=== PATIENT | female | born 1925 | race Caucasian/White ===

== ENCOUNTER 2017-02-16 23:01 | Inpatient (IN) | payer MEDICARE ==
[~2017-02-16] VITALS: Ht 162.6 cm; Wt 72.5 kg
[2017-02-16 23:23] VITALS: BP 183/75; RESP 16; O2SAT 89
--- NOTE | 2017-02-16 23:33 | ED.REPORT ---
HPI-Hip/Pelvis Prob/Inj Date of Service Feb 16, 2017 ED Provider: Darrell Ford MD Patient is an 89 y/o female who is brought to the ED via EMS due to a ground level fall. She complains of left leg pain. Patient denies dysuria, fever, cough , shortness of breath or hitting her head. Per the patient's daughter, the patient had a mechanical fall off of the porch. Patient does not recall falling. The patient's daughter reports that the patient normally has a drink or two at night. En route to the ED, patient received Fentanyl by Medics. Patient is not currently on anticoagulants. Nursing Notes Stated Complaint: GLF Chief Complaint: Extremity Trauma Nursing Notes Reviewed: Yes Allergies: Coded Allergies: No Known Allergies (Unverified , 02/16/17) General Time Seen by Provider: 23:36 Chief Complaint Hip injury left Hx Obtained From: Patient, Daughter Arrived By: Ambulance Onset Occurred: Just prior to arrival Symptom Duration: Since onset Caused by: Accidental, Fall on ground Quality: Painful Severity: Current: Severe Severity: Maximum: Severe Recent Healthcare: No recent doctor visit, No recent hospitalization Similar Sx Previous: No Past Medical History Past Medical History None reported Past Surgical History none recorded Smoking History Unknown if Ever Smoker Social History Alcohol Use: 1-3 per week Other Social History: Good social support Ambulatory Status Independent Review of Systems Constitutional: Denies: Fever Musculoskeletal: Reports: Extremity pain (left leg) Complete sys rev & neg: except as marked. Respiratory: Denies: Non-productive cough, Shortness of breath Female: Denies: Dysuria Physical Exam Initial Vital Signs Vital Signs (First) Date Time Temp Pulse Resp B/P Pulse Ox O2 Delivery O2 Flow Rate FiO2 02/16/17 23:23 36.4 16 183/75 89 Room Air Initial VS: Reviewed, Vital signs abnormal General/Constitutional: Well-developed, Well-nourished Head / Eyes: Atraumatic, Normocephalic Abdomen / GI: Soft, Non-tender Skin: Warm, Dry Psychiatric: Mood/affect normal, Behavior normal Lower Extremity / Pelvis / MS: Neurologic intact, Vascular intact thigh muscle spasm minimal left hip tenderness 6cm shortening on the left bilateral 1+ edema good dp pulses open sores on the lateral aspect of the left ankle General/Constitutional: Awake, Alert Neck: Atraumatic, Supple, No JVD Respiratory / Chest: Atraumatic, Breath sounds NL, Breath sounds = bilat, No respiratory distress Cardiovascular: Heart rate NL, Regular rhythm, Heart sounds NL Back: Inspection NL, Non-tender, No CVA tenderness Interpretation & Diagnostics Lab Results Interpretation Result Diagram: 02/16/17 2347 02/16/17 2347 Test 02/16/17 23:47 White Blood Count 15.9th/mm3 (3.8-10.1) Red Blood Count 3.62mil/mm3 (3.90-5.20) Hemoglobin 11.4g/dL (12.0-15.6) Hematocrit 34.7% (35.0-46.0) Mean Corpuscular Volume 95.9fL (81-100) Mean Corpuscular Hemoglobin 31.5pg (27.0-35.0) Mean Corpuscular Hemoglobin Concent 32.9% (32.0-37.0) Red Cell Distribution Width 13.4% (12.3-15.4) Platelet Count 349bil/L (150-400) Neutrophils (%) (Auto) 81.5% (40-74) Lymphocytes (%) (Auto) 10.3% (14-46) Monocytes (%) (Auto) 7.3% (4-12) Eosinophils (%) (Auto) 0.4% (0-5) Basophils (%) (Auto) 0.1% (0-3) Prothrombin Time 10.4sec (8.1-12.5) Prothromb Time International Ratio 0.97ratio Sodium Level 130mEq/L (134-144) Potassium Level 3.8mEq/L (3.5-5.2) Chloride Level 90mEq/L (97-108) Carbon Dioxide Level 24mmol/L (18-29) Blood Urea Nitrogen 23mg/dL (8-27) Creatinine 1.03mg/dL (0.57-1.00) Estimat Glomerular Filtration Rate 72mL/min (>59) Glucose Level 146mg/dL (60-99) Lactic Acid Level 1.0mmol/L (0.4-2.0) Calcium Level 8.8mg/dL (8.5-10.1) Magnesium Level 1.9mg/dL (1.6-2.6) Total Bilirubin 0.5mg/dL (0.0-1.2) Aspartate Amino Transf (AST/SGOT) 27U/L (0-50) Alanine Aminotransferase (ALT/SGPT) 22U/L (0-32) Alkaline Phosphatase 76U/L (25-165) Troponin T 0.010ug/L (0.0-0.011) Total Protein 6.9g/dL (6.4-8.4) Albumin 4.3g/dL (3.4-5.0) Procalcitonin 0.03ng/mL (0.00-0.08) Hold العراقي Top Tube Received (Received) Lab Results Interpretation: Multiple minor abnormalities. Elevated white count related to stress response. No evidence UTI ECG Interpretation Time: 23:56 Interpreted by: ED physician Normal ECG Interpretation: Normal ECG w/ rate of... (71), Normal sinus rhythm X-Ray Interpretation Xray Interpretation: Left femoral neck fracture with about 60% displacement X-Ray Ordered: Femur left Interpretation / Wet Read by: Wet read ED physician Interpretation: Fracture-dislocation Xray Interpretation: no femoral shaft fracture X-Ray Ordered: Femur left Interpretation / Wet Read by: Wet read ED physician Interpretation: Normal exam Re-Eval/Medical Decision Med Decision/Clinical Course 89-year-old female who is generally healthy presents with fall and left femoral neck fracture. There appears to be no associated injury. She has multiple minor abnormalities on her lab, and none of clinical significance. She drinks one drink on most days. She is not on blood thinner in her INR is normal. There is no evidence of infection as a precipitant to the fall. Her case was discussed with Dr. Frank who will take her to the OR for hip pinning tomorrow. She will be admitted to Dr. Clay, hospitalist service. Source of Hx: Old records Re-Evaluation/Progress #1: Time of Eval: 00:25 Patient Status: Condition improved Re-Evaluation/Progress Note: Pt is feeling more comfortable after receiving pain medication. Re-Evaluation/Progress #2: Time of Eval: 00:35 Re-Evaluation/Progress Note: No femur shaft fracture, left femoral neck fracture Re-Evaluation/Progress #3: Time of Eval: 00:56 Re-Evaluation/Progress Note: Discussed X-ray results and plan for admit. Patient and family understand and agree to plan. All questions were addressed. Consultation #1: Referral / Consult Name: Ghanshyam Frank MD Consulted With: Orthopedic Call Returned at: 00:48 Product Development Worker: Will see patient Note: Consult with Dr. Frank who would like the pt's knee. Consultation #2: Referral / Consult Name: Cheryl Clay DO Consulted With: Hospitalist Call Returned at: 00:53 Product Development Worker: Will see patient, Agrees with eval, Agrees with plan, Accepts admit Counseled Regarding: Diagnosis, Lab results, Need for admission Discharge & Departure Impression: Primary Impression: Fracture of femoral neck, left Encounter type: initial encounter Fracture type: closed Qualified Code: S72.002A - Fracture of unspecified part of neck of left femur, initial encounter for closed fracture Additional Impression: Fall Encounter type: initial encounter Qualified Code: W19.XXXA - Unspecified fall, initial encounter Disposition: ADMITTED TO HOSPITAL Discharge Condition All VS Reviewed: Yes Condition: Stable Referrals: Saad Alonso MD (PCP) Scribe Attestation Portion of this note were transcribed by Reymundo Snyder and Stephanie Barrett. I, Dr. Darrell Ford personally performed the history, physical exam and medical decision-making; I reviewed and confirmed the accuracy of the information in the transcribed note. Signed by: Reymundo Snyder and Es Lomeli, 02/16/17. copies to: Saad Alonso MD, Howard L MD Feb 16, 2017 23:33 Reymundo Snyder Feb 16, 2017 23:47 Jennifer Barrett Feb 17, 2017 01:18
[2017-02-16] MEDS ORDERED: Ondansetron 2 mg/mL 2 mL Inj IV PRN (23:35)
[2017-02-16] MEDS: HYDROmorphone 0.5 mg/0.5 mL iSecure Syringe IVPUSH PRN ×2 (23:40→23:57)
[2017-02-17] VITALS (7 sets, daily range): BP systolic 126–169; BP diastolic 43–92; PULSE 69–83; RESP 16–19; O2SAT 92–98
[2017-02-17 00:05] LABS: BASOPHILS % (AUTO) 0.1 % (0-3); EOSINOPHILS % (AUTO) 0.4 % (0-5); MONOCYTES % (AUTO) 7.3 % (4-12); Mean Corpuscular Hemoglobin 31.5 pg (27.0-35.0); Mean Corpuscular Volume 95.9 fL (81-100); NEUTROPHILS % (AUTO) 81.5 % (40-74); Platelet Count 349 bil/L (150-400)
[2017-02-17 00:17] LABS: INR 0.97 ratio
[2017-02-17 00:36] LABS: Magnesium 1.9 mg/dL (1.6-2.6); TROPONIN T 0.01 ug/L (0.0-0.011)
[2017-02-17] MEDS: HYDROmorphone 0.5 mg/0.5 mL iSecure Syringe IVPUSH PRN ×5 (01:01→19:56)
[2017-02-17] MEDS ORDERED: Ondansetron 2 mg/mL 2 mL Inj IVPUSH PRN (01:10)
[2017-02-17] MEDS ORDERED: Polyethylene Glycol (PEG) 17 Gm Powder PO PRN (01:10)
[2017-02-17] MEDS ORDERED: Alum-Mag Hydrox-Simeth 30 mL Suspension PO PRN (01:10)
--- NOTE | 2017-02-17 01:11 | PCM.HPMED ---
Subjective Date of Service Feb 17, 2017 Primary Provider: Admitting Physician: Primary Care Physician: Saad Alonso MD Attending Physician: Admit Status: From the Emergency Department Chief Complaint: Leg pain History of Present Illness: Patient is an 89F that presented to the ED post fall off porch with left hip fracture. She has a history of hypertension, and iron deficiency anemia History obtained from outpatient chart review, patient interview, and ED report Patient reported to the ED after a fall off of a porch. Patient states that she does not recall all of the events secondary to fatigue and medication. Per ED report, daughter witnessed fall and states that it was mechanical. Patient does not have a significant fall history and this is her first broken bone in later life. She denies head trauma, LOC, headache, change in vision, nausea, vomiting. Admits to pain in left leg. At baseline patient is independently ambulatory and lives with daughter. Review of Systems: Complete ROS performed. All pertinent positive and negatives in HPI. All other ROS negative. Allergies Coded Allergies: No Known Allergies (Unverified , 02/16/17) Home Medications Metoprolol 50 mg Hydrochlorothiazide 25 mg Aspirin 81 mg PMH 1. Iron deficiency anemia 2. Hypertension Surgical History 1. No surgical history Family History 1. No family history of osteoporosis 2. "Some family history of heart disease" Social History Hx Alcohol Use: Yes (1 drink per day) Hx Substance Use: No Hx Tobacco Use: No Smoking Status: Never Smoker Living Arrangement: with Family (with daughter) Exam Vital Signs Vital Sign - Last Date Time Temp Pulse Resp B/P Pulse Ox O2 Delivery O2 Flow Rate FiO2 02/16/17 23:23 36.4 16 183/75 89 Room Air Exam General: Nondistressed, well-developed tired female HEENT: NC/AT, PERRLA, EOM intact. Nontender sinuses, no nasal discharge. Fair dentation, no erythema, nor exudate present in oropharynx. No thyromegaly appreciated. CV: Regular rate and rhythm, no murmurs, gallops, or rubs appreciated RESP: Clear to auscultation bilaterally, no wheezes or rhonchi appreciated ABD: Bowel sounds normal, nondistended, nontender to palpation. EXT: No joint swelling, 1+ edema bilateral lower extremity. Pain with movement of left leg LYMPH: No cervical or axillary adenopathy appreciated NEURO: Symmetric face, cranial nerves grossly intact, strength intact bilaterally upper and lower extremities, sensation to light touch intact bilaterally upper and lower extremities. PSYCH: Oriented 4. Linear and appropriate conversation. Skin: No rashes or ecchymosis appreciated. Scab lower left extremity. Lab and Diagnostics Result Diagram: 02/16/17234602/16/172346 X-Rays, CTs and MRIs Xray Interpretation: Left femoral neck fracture with about 60% displacement X-Ray Ordered: Femur left Interpretation / Wet Read by: Wet read ED physician Interpretation: Fracture-dislocation 12-lead ECG Time: 23:56 Interpreted by: ED physician Normal ECG Interpretation: Normal ECG w/ rate of... (71) Assessment & Plan Patient is an 89F that presented to the ED post GLF with left hip fracture. She has a history of hypertension, iron deficiency anemia, and fibromyalgia 1. Left femur fracture, present on admission and ongoing -Displaced femur neck fracture visualized on xray after a ground level fall -Ortho consulted by ED and will see in the AM -Pain management 2. Hypertension, present on admission and ongoing -Blood pressure 183/75 upon arrival at emergency department -Continue home regimen of metoprolol and HCTZ 3. Leukocytosis with left shift, present upon admission and ongoing -Stress reaction versus infection -Negative UA -Procalcitonin and lactic acid negative -02/17 considering negative laboratory tests, most likely stress reaction 4. Normocytic anemia, present upon admission and ongoing -Patient has a history of iron deficiency anemia -Recommend iron replacement 5. Hyponatremia, present on admission and ongoing -Normal saline 100 ml/hr -Recheck CMP before discharge This patient is being admitted to inpatient. I expect her stay to be greater than two midnights. Pain Evaluation: Adequate Pain Control GI Prophylaxis: Proton Pump Inhibitor Resuscitation Status: Limited Interventions (Patient would like CPR but not intubation) Attending Statement The patient was seen and examined together with house staff on 02/17/2017 and I agree with the history, exam and plan as outlined in the note above. Luz Quarles DO Feb 17, 2017 01:11 Cheryl Clay DO Feb 17, 2017 04:35
[2017-02-17 01:46] LABS: APPEARANCE,URINE CLEAR (CLEAR,HAZY); COLOR,URINE YELLOW (YELLOW)
[2017-02-17 01:47] LABS: OCCULT BLOOD,URINE TRACE (NEGATIVE); UROBILINOGEN,URINE NORMAL (NORMAL)
--- NOTE | 2017-02-17 02:05 | NUR ---
Admit Received report @ 01:45 from Kimberly Quiles RN patient arrived via tech @ this time, Dx L-hip fx, used slider board to transfer, A&O though drowsy,admit orientation complete w/exception of med rec patient not sure of BP med takes, in to assess now,IVF jovita , NPO likely surgery today!
[2017-02-17] MEDS: 0.9% Sodium Chloride 1,000 ML IV SCH ×3 (02:49→21:10)
[2017-02-17 07:14] LABS: BASOPHILS % (AUTO) 0.1 % (0-3); EOSINOPHILS % (AUTO) 0.1 % (0-5); MONOCYTES % (AUTO) 8.5 % (4-12); Mean Corpuscular Hemoglobin 32.1 pg (27.0-35.0); Mean Corpuscular Volume 95.7 fL (81-100); NEUTROPHILS % (AUTO) 85.2 % (40-74); Platelet Count 345 bil/L (150-400)
--- NOTE | 2017-02-17 08:43 | DRSVH ---
PROCEDURE: X-RAY PELVIS, ONE OR TWO VIEWS ([id number]) INDICATIONS: fall, fracture TECHNIQUE: 1 view(s) of the pelvis acquired. COMPARISON: None. FINDINGS: Bones: Transcervical fracture of the proximal left femur noted. No fracture is in varus angulation.. Soft tissues: Visualized bowel gas pattern is normal. No suspicious soft tissue calcifications. IMPRESSION: Proximal left femur fracture. Dictated by: Maddy Hwang MD, PhD on 02/17/2017 at 8:41 Approved by: Maddy Hwang MD, PhD on 02/17/2017 at 8:41
--- NOTE | 2017-02-17 08:44 | DRSVH ---
PROCEDURE: X-RAY CHEST ONE VIEW, PORTABLE ([id number]) INDICATIONS: fall, fracture TECHNIQUE: One view of the chest was acquired. COMPARISON: None. FINDINGS: Surgical changes and devices: None. Lungs and pleura: No pleural effusions or pneumothorax. Lungs are clear. Mediastinum: Mediastinal contours appear normal. Heart size is normal. Bones and chest wall: No suspicious bony lesions. Overlying soft tissues appear unremarkable. IMPRESSION: No acute cardiopulmonary disease process. Dictated by: Maddy Hwang MD, PhD on 02/17/2017 at 8:42 Approved by: Maddy Hwang MD, PhD on 02/17/2017 at 8:42
--- NOTE | 2017-02-17 08:44 | DRSVH ---
PROCEDURE: X-RAY LEFT FEMUR, TWO VIEWS ([id number]) INDICATIONS: fall, broken hip. midshaft pain TECHNIQUE: 2 views of the femur were acquired. COMPARISON: None. FINDINGS: Bones: Transcervical fracture of the proximal femur noted. Fracture is in varus angulation. Severe kn ee osteophytic degenerative changes noted. Soft tissues: No suspicious soft tissue calcifications or masses. IMPRESSION: Transcervical proximal left femur fracture. Dictated by: Maddy Hwang MD, PhD on 02/17/2017 at 8:41 Approved by: Maddy Hwang MD, PhD on 02/17/2017 at 8:42
[2017-02-17] MEDS ORDERED: HYDR25TA4 PO (09:38)
[2017-02-17] MEDS ORDERED: METO50TA3 PO (09:38)
--- NOTE | 2017-02-17 10:53 | DRSVH ---
[facility] [address] [place] [address] Echocardiogram Report Name: ALOK LAY MStudy Date: 02/17/2017 Height: 64 in Hospital Exam Location: [facility] Weight: 135 lb Gender: Female BSA: 1.7 m2 : 1925 Age: 89 yrs BP: 165/92 mmHg Reason For Study: PREOP Ordering Physician: HOSPITALIST [facility] Performed By: Celine Amato Referring Physician: [facility] Interpretation Summary Left ventricular systolic function is normal without focal wall motion abnormalities with the ejection fraction visually estimated to be 60-65%. There is borderline concentric left ventricular hypertrophy with a probable relaxation abnormality of the left ventricle, consistent with normal filling pressures. The right ventricle is normal in size and function. The right ventricular systolic pressure is estimated to be at least 43 mmHg assuming a right atrial pressure of 3 mm Hg. The left atrium is severely dilated and the right atrium is moderately dilated. There is moderate to severe tricuspid regurgitation and mild pulmonic regurgitation but no other significant valvular heart disease. Procedure: A two-dimensional transthoracic echocardiogram with color flow and Doppler was performed. The study quality was technically adequate. There is no prior echocardiogram noted for this patient. The patient was in normal sinus rhythm during the exam. The patient had frequent PACs during the exam. Left Ventricle: The left ventricle is normal in size. There is borderline concentric left ventricular hypertrophy. Left ventricular systolic function is normal without focal wall motion abnormalities. The ejection fraction is estimated to be 60-65%. Assessment of diastolic parameters indicates a relaxation abnormality of the left ventricle, consistent with normal filling pressures. Right Ventricle: The right ventricle is normal in size and function. Atria: The left atrium is severely dilated. The right atrium is moderately dilated. There is no Doppler evidence for an interatrial shunt. Mitral Valve: There is mild to moderate mitral annular calcification. The mitral valve leaflets appear normal. There is no evidence of stenosis, fluttering, or prolapse. There is trace mitral regurgitation. Aortic Valve: The aortic valve is not well visualized. The aortic valve is grossly normal. The aortic valve opens well. There is trace aortic regurgitation. Tricuspid Valve: The tricuspid valve is not well visualized, but is grossly normal. There is moderate to severe tricuspid regurgitation. The right ventricular systolic pressure is estimated at least 43 mmHg assuming a right atrial pressure of 3 mm Hg. Pulmonic Valve: The pulmonic valve is not well visualized. There is mild pulmonic regurgitation. There is no other significant valvular heart disease. Great Vessels: The aortic root is normal size. The ascending aorta could not be visualized. The aortic arch could not be visualized. The pulmonary is not well visualized. The IVC is of normal diameter and collapses greater than 50% with a sniff. This suggests a low right atrial pressure of 3 mm Hg. Pericardium/ Pleura There is no pericardial effusion. There is no pleural effusion. MMode/2D Measurements & Calculations LVIDd: 3.9 cm LVIDs: 2.8 cm LA A2 area: 24.7 cm FS: 27.3 % LA A4 area: 21.9 cm EPSS: 0.55 cm LA length (vol): 5.2 cm IVSd: 1.1 cm LA vol: 88.4 ml LVPWd: 0.96 cm LA vol index: 53.4 ml/m IVC diam: 1.3 cm RA long axis: 5.2 cm LVOT diam: 2.0 cm RA area: 20.0 cm AoV Openin.7 cm RA vol: 65.3 ml Ao root diam: 2.9 cm RA : 39.5 ml/m2 LV avery. diameter/BSA (cm/m^2): 2.4 LV sys. diameter/BSA (cm/m^2): 1.7 RVD1 (basal): 4.3 cm RVD2 (mid): 2.9 cm Doppler Measurements & Calculations Ao V2 max: 133.2 cm/sec MV E max vignesh: 77.3 cm/sec Ao max P.1 mmHg MV A max vignesh: 99.3 cm/sec Ao mean P.3 mmHg MV P1/2t: 54.6 msec LVOT Max Vignesh: 91.8 cm/sec MVA(VTI): 2.3 cm2 OBED(I,D): 2.1 cm sev ratio: 0.69 MV E/A: 0.78 TR max vignesh: 317.6 cm/sec Med Peak E' Vignesh: 6.9 cm/sec TR max P.3 mmHg E/E' med: 11.1 PA V2 max: 69.8 cm/sec Lat Peak E' Vignesh: 10.3 cm/sec PA mean P.2 mmHg E/E' lat: 7.5 E/e' average: 9.3 MV V2 mean: 67.8 cm/sec MV P1/2t max vignesh: 78.1 cm/sec MV mean P.0 mmHg MV V2 VTI: 27.7 cm MVA(P1/2t): 4.0 cm2 MV dec time: 0.19 sec Ao V2 mean: 99.0 cm/sec LV V1 max P.4 mmHg Ao V2 VTI: 29.8 cm LV V1 VTI: 20.5 cm OBED(V,D): 2.1 cm2 PA V2 mean: 52.5 cm/sec OBED indexed to BSA (cm^2/m^2): 1.3 PA pr(Accel): 43.2 mmHg Reading Physician:10:52 AM
--- NOTE | 2017-02-17 13:09 | NUR ---
Arrival to [facility] Patient arrives from [facility] via bed alert and oriented, on 3L of O2 via NC, scott catheter draining pale urine to gravity. Patient states she does have some pain to the left hip but states it is within a tolerable level. Left lower extremity warm, with palpable pulses, capillary refill within 3 seconds, with sensation intact, moveable by patient and without numbness, burning or tingling. IV patent, ordered fluids infusing. Patient denies chest pain, shortness of breath or other difficulty. at bedside, care is ongoing.
--- NOTE | 2017-02-17 15:22 | NUR ---
Social Work- Initial Assessment/Multidisciplinary Rounds Data: See CM Initial Assessment. Pt is a 89 year old female admitted for left hip fracture per H&P. Pt's insurance is [employer] [facility]. Pt's PCP is Saad Alonso MD. Pt's readmit risk score is not entered at this time. Pt's NOK and designated banquet houseperson is daughter Crow Fierro, . Pt discussed in multidisciplinary rounds, pt to OR tomorrow. PT to evaluate pt after surgery. SW spoke with pt and son at bedside to discuss discharge plan, SW role explained. Pt alert and oriented x3. Pt resides in [place] in a home with her daughter where she is independent with ADLs and self-care. Pt has no history of SNF. Pt has history of HH many years ago, company unknown. Pt has no LTC or VA benefits. Pt uses no DME at baseline but she does have a cane at home. Pt does not drive. Pt provided DPOA paperwork at bedside, has not completed this in the past. SW spoke generally about SNF as it is likely that pt will require this at d/c. Pt is agreeable if this is medically indicated. Pt requested referral to [facility] if necessary at d/c. SW will continue to follow. No SW orders at this time. Assessment: Pt who is independent with ADLs and self-care at baseline. Plan: Pt is likely to require SNF at discharge, pt is agreeable if necessary. Pt requested referral to [facility] if necessary at d/c. SW will continue to follow. No SW orders at this time. Lenora Sue, FORMING MACHINE OPERATOR Addendum: 02/17/17 at 1526 by KAREN SUE Amended: Links added.
--- NOTE | 2017-02-17 18:22 | DRSVH ---
PROCEDURE: CT PELVIS WITHOUT CONTRAST ([id number]) INDICATIONS: RULE OUT FRACTURE PELIVE TECHNIQUE: Noncontrast 3 mm axial sections acquired through the bony pelvis, with coronal and sagittal reformatt ing. COMPARISON: [facility], CR, XR PELVIS 1 OR 2VW, 02/17/2017, 0:23. FINDINGS: Image quality: Excellent. Bones: Subcapital fracture of the proximal left femur is again noted. Distal fracture fragment is d isplaced proximally. The femur fracture is in varus angulation. No right hip fractures identified. Chronic appearing left obturator ring fracture noted. Cortical lucency noted in the inferior right pubic ramus compatible with nondisplaced fracture. No acetabular fractures identified. No cervical spine fractures identified. Spine degenerative disc disease and facet arthropathy are noted. Soft tissues: Mild soft tissue swelling noted adjacent to the left hip fracture. Scattered divertic florina noted in the colon without evidence of diverticulitis. Atherosclerotic calcifications noted in t he pelvic and visualized lower surety vasculature. IMPRESSION: 1. Subcapital proximal left femur fracture. 2. Nondisplaced fracture of the right obturator ring. 3. Chronic left obturator ring fracture. Dictated by: Maddy Hwang MD, PhD on 02/17/2017 at 18:15 Approved by: Maddy Hwang MD, PhD on 02/17/2017 at 18:20
[2017-02-18] VITALS (14 sets, daily range): BP systolic 80–129; BP diastolic 30–77; PULSE 71–87; RESP 10–18; O2SAT 92–100
[2017-02-18] MEDS: 0.9% Sodium Chloride 1,000 ML IV SCH ×2 (01:10→19:29)
[2017-02-18] MEDS: HYDROmorphone 0.5 mg/0.5 mL iSecure Syringe IVPUSH PRN ×2 (01:10→08:57)
--- NOTE | 2017-02-18 01:12 | CONS ---
[address] [address] CONSULTATION REPORT PATIENT: ALOK LAY : 1925 MR#: [id number] ADMIT: 02/17/2017 JOB ID: [id number] ORTHOPEDIC INPATIENT CONSULTATION: CPT code 31059-10 DATE OF SERVICE: 02/17/2017 CHIEF COMPLAINT: An 89-year-old female with some early senile dementia, fell with a ground level fall, sustaining a displaced left femoral neck fracture. There was no obvious loss of consciousness. The patient was accompanied by her daughter, and it evidently was a mechanical fall and it was witnessed. ALLERGIES: None. CURRENT MEDICATIONS: Metoprolol, hydrochlorothiazide, and aspirin. PAST MEDICAL HISTORY: Positive for iron-deficiency anemia and hypertension. SURGICAL HISTORY: The patient denies any surgery. FAMILY HISTORY: Noncontributory, other than family history of heart disease. SOCIAL HISTORY: The patient drinks one drink per day. She has never smoked. REVIEW OF SYSTEMS: HEENT: Denies any acute visual changes. Is not complaining of any shortness of breath. Cardiovascular: No chest pain. GI: No nausea, vomiting. : The patient has a Lin that was placed after her hip fracture. Neurologic: The patient appears to be confused. PHYSICAL EXAMINATION: Height 162 cm, 61.5 kg, female. The patient wants to go home and states that she has been able to ambulate. The patient is confused as to the current problem at hand. Left leg is slightly shortened and rotated. Peripheral pulses are full. Skin over the hip is intact. Calf is soft. The patient does move all four extremities. The patient is also having pain on the right hemipelvis around the ischial tuberosity on the right. X-RAYS: Show she has displaced left femoral neck fracture. With her persistent complaints of pelvic pain, a CT scan was ordered and she has a nondisplaced right inferior pubic rami fracture and a chronic left pubic rami fracture. X-rays were taken down to the knee on the left leg. She has degenerative arthritis in the left knee but no fracture seen. A cardiac echo was performed. The patient has moderate to severe tricuspid regurgitation with mild pulmonic regurgitation, but no other significant valvular heart disease. Ejection fraction is 60-65%. She also has had some frequent PACs during the procedure. IMPRESSION: 1. Displaced left femoral neck fracture. 2. Some senile dementia. The patient will be best served with a left femoral hemiarthroplasty for her femoral neck fracture. I was not able to fully explain the risks of surgery to the patient since she has some senile dementia, is saying she just wants to go home and does not want surgery. I did discuss surgical treatment with the family members, both her son and her daughter. They are aware of the risks for bleeding, infection, pain, and stiffness, possibility for damage surrounding the neurovascular structures, potential for hardware failure such as fracture below the prostheses, and/or possible dislocation. The patient sometimes is noncompliant and does not want to use a walker and if she should fall after her procedure she certainly could break below the prostheses or could even dislocate the prostheses. According to her daughter, her daughter states that the patient still does pay her bills but whenever she is stressed, they have noticed that sometimes she starts losing mental focus. She certainly was not focused when I was examining her or discussing surgery with her today. Both of her children will discuss this with the patient to see if she would be amenable for surgical intervention. Neither the son nor the daughter actually have power of supervisor pole yard. The son is in the executor of the estate, but they do not actually have power of supervisor pole yard. I am also not aware of whether or not she might have a living will. The patient not only has the above surgical risks as I have indicated, but there is also a risk for DVT, pulmonary emboli, NC, stroke, and fatal cardiopulmonary event. We will see if the patient will sign surgical consent tomorrow. Family members, both son and/or the daughter could also sign. I have also suggested they really need to seek some legal counseling so that they could have power of supervisor pole yard put in place. Will have the patient remain n.p.o. after midnight. She does not have any known allergies. She could receive 2 g of Ancef IV preoperatively.
--- NOTE | 2017-02-18 01:48 | NUR ---
PAIN; ortho checks wnl. Pt forgetful that she is in the hospital after pain rx was given. Reoriented easily. NPO after midnight. Bed cele placed for pt safety.
[2017-02-18 05:55] LABS: BASOPHILS % (AUTO) 0.1 % (0-3); EOSINOPHILS % (AUTO) 0.4 % (0-5); Mean Corpuscular Hemoglobin 32.2 pg (27.0-35.0); Mean Corpuscular Volume 95.2 fL (81-100); NEUTROPHILS % (AUTO) 85.3 % (40-74); Platelet Count 285 bil/L (150-400)
--- NOTE | 2017-02-18 09:57 | PCM.HPANE ---
Patient Data Date of Service: Feb 18, 2017 Surgeon Admitting Provider:Cheryl Clay DO Attending Provider:Hi Drew MD Primary Care Physician:Saad Alonso MD Other Provider: Reason for Visit L Hip Fracture Ht/WT & BMI Height (Feet): 5 Height (Inches): 4.00 Weight (Kilograms): 61.500 Body Mass Index 23.15 Allergies Coded Allergies: No Known Allergies (Unverified , 02/16/17) Past Anesthesia History Anesthesia History: Denies:: Anesthesia Reactions, Fam Anesthesia Reaction Diabetes History Hx Diabetes?: No MRSA MRSA: No Medications Hypertension Medication: Yes Home Meds Incl Beta Ana: Yes Reported Medications Hydrochlorothiazide 25 Mg [id number] Mg PO DAILY 30 Days Ref 0 02/17/17 Metoprolol Tartrate 50 Mg [id number] Mg PO BID 30 Days Ref 0 02/17/17 History History of ENT Problems?: No HEENT History: Denies:: Abnormal Airway TMJ Denture Type: None Teeth Condition: Within Normal Limits Hx of Heart Problems?: Yes Cardiovascular History: Positive for:: Hypertension Denies:: Congestive Heart Failure Hx of Respiratory Problem?: No Respiratory History: Denies:: Tuberculosis Hx Neurologic Problems?: No Neurological History: Denies:: CVA Multiple Sclerosis Peripheral Neuropathy TIA Hx of GI Problems?: No Gastrointestinal History: Denies:: Gastroesphageal Reflux Hx of Problems?: Yes Genitourinary History: Positive for:: Urinary Tract Infection Female Hx: Denies:: Currently Endometriosis Pelvic Inflammatory Problems with Breasts? Hx Musculoskeletal Problems?: No Hx Surgeries?: No History Blood Transfusions: Positive for:: Accept Blood Products? Denies:: Blood Transfuse Reaction Blood Transfusions Hx Diabetes: No Hx Alcohol Use: Yes (1 drink per day)Hx Substance Use: No Smoking Status: Never Smoker Stop/Bang Treated for Sleep Apnea?: No Do You Have a CPAP Machine?: No S-Snoring: Do You Snore Loudly: No T-Tired: feel tired, fatigued: Yes O-Obsered: Observed not breath: No P-Blood Pressure: treated: No B- Body Mass Index > 35 kg/m2: No A- Age over 50: Yes N- Neck Large Circumference: No G- Gender Male: No SOCO Total Score: 1 SOCO Risk Assessment: Low Risk, <3 Yes Risk Assessment Category Category 1A: Patient has history of documented sleep apnea, and HAS NOT received any narcotic, sedative or anesthesia administration during this stay. Category 1B: Patient has history of documented sleep apnea, and HAS received any narcotic , sedative or anesthesia administration during this stay Category 2: Patient has SUSPECTED Obstructive Sleep Apnea, and HAS received any narcotic , sedative or anesthesia administration during this stay. Category 3: Patient has SUSPECTED Obstructive Sleep Apnea and HAS NOT received narcotic, sedative or anesthesia administration during this stay. Category 4: Outpatient in Procedural Areas with known sleep apnea or who screen positive for High Risk via the STOP/BANG questionnaire. Exam Exam Vital Signs Vital Signs Date Time Temp Pulse Resp B/P Pulse Ox O2 Delivery O2 Flow Rate FiO2 02/18/17 05:23 36.8 82 18 129/55 92 Room Air General Appearance: Alert, Cooperative, No Acute Distress HEENT/AIRWAY: MP 3, Neck Movement (limited extension. tmd < 3 fb), Mouth Opening (small) Lungs: Clear to Auscultation, Normal Air Movement Heart: Exam Unremarkable, Regular Rate/Rhythm, No Murmurs/Rubs/Gallops Meds/Labs/Diagnostics Admission Meds Current Medications Hydrochlorothiazide (Hydrodiuril) 25 mg DAILY PO Last administered on 11:43; Start 02/17/17 at 11:15; Stop 02/18/17 at 07:30; Status DC Metoprolol Tartrate (Lopressor) 50 mg BID PO Last administered on 02/18/17 08: 49; Start 02/17/17 at 11:15 Labs Test 02/16/17 23:47 02/17/17 01:34 02/17/17 01:36 02/17/17 06:30 Prothrombin Time 10.4sec (8.1-12.5) Prothromb Time International Ratio 0.97ratio Lactic Acid Level 1.0mmol/L (0.4-2.0) Magnesium Level 1.9mg/dL (1.6-2.6) Troponin T 0.010ug/L (0.0-0.011) Hold العراقي Top Tube Received (Received) Hold Urine Received (Received) Urine Color Yellow (YELLOW) Urine Appearance Clear (CLEAR,HAZY) Urine pH 6.0 (5.0-8.0) Urine Specific [place] 1.020 (1.003-1.035) Urine Protein Negativemg/dL (NEG,TRACE) Urine Glucose (UA) Negativemg/dL (NEGATIVE) Urine Ketones Negativemg/dL (NEGATIVE) Urine Occult Blood Trace (NEGATIVE) Urine Nitrite Negative (NEGATIVE) Urine Bilirubin Negative (NEGATIVE) Urine Urobilinogen Normalmg/dL (NORMAL) Urine Leukocyte Esterase Negative (NEGATIVE) Urine RBC 0-2/hpf (0-2) Urine WBC 0-5/hpf (0-5) Urine Epithelial Cells Few/hpf (NONE-MOD) Urine Crystals None seen (NONE SEEN) Urine Bacteria Few/hpf (NONE-FEW) Urine Hyaline Casts None/lpf (NONE) Urine Granular Casts None seen (NONE SEEN) Urine Waxy Casts None seen (NONE SEEN) Urine Red Blood Cell Casts None seen (NONE SEEN) Urine White Blood Cell Casts None seen (NONE SEEN) Urine Mucus None seen (None Seen) Urine Trichomonas None seen (NONE SEEN) Urine Yeast None (NONE SEEN) Urinalysis Comment None Urine Culture Reflexed Not indicated Total Bilirubin 0.8mg/dL (0.0-1.2) Aspartate Amino Transf (AST/SGOT) 28U/L (0-50) Alanine Aminotransferase (ALT/SGPT) 20U/L (0-32) Alkaline Phosphatase 77U/L (25-165) Total Protein 6.3g/dL (6.4-8.4) Albumin 3.9g/dL (3.4-5.0) Procalcitonin 0.06ng/mL (0.00-0.08) Test 02/18/17 05:25 White Blood Count 16.6th/mm3 (3.8-10.1) Red Blood Count 3.35mil/mm3 (3.90-5.20) Hemoglobin 10.8g/dL (12.0-15.6) Hematocrit 31.9% (35.0-46.0) Mean Corpuscular Volume 95.2fL (81-100) Mean Corpuscular Hemoglobin 32.2pg (27.0-35.0) Mean Corpuscular Hemoglobin Concent 33.9% (32.0-37.0) Red Cell Distribution Width 13.5% (12.3-15.4) Platelet Count 285bil/L (150-400) Neutrophils (%) (Auto) 85.3% (40-74) Lymphocytes (%) (Auto) 4.9% (14-46) Monocytes (%) (Auto) 9.0% (4-12) Eosinophils (%) (Auto) 0.4% (0-5) Basophils (%) (Auto) 0.1% (0-3) Sodium Level 126mEq/L (134-144) Potassium Level 3.6mEq/L (3.5-5.2) Chloride Level 90mEq/L (97-108) Carbon Dioxide Level 23mmol/L (18-29) Blood Urea Nitrogen 10mg/dL (8-27) Creatinine 0.71mg/dL (0.57-1.00) Estimat Glomerular Filtration Rate 111mL/min (>59) Glucose Level 142mg/dL (60-99) Calcium Level 8.2mg/dL (8.5-10.1) Plan Impression Patient chart reviewed, patient interviewed and anesthestic plan with risks, benefits, and alternatives discussed, and informed consent obtained. NPO per Anesth. Guidelines: Yes ASA Physical Status: ASA2 Mod Systemic Disease Anesthetic Support Modalities: [place] Scope Anesthetic Plan: GA Bene/Risks/Altern/Consents: Yes (with son present) HP Complete Prior to Induction: Yes Carrington Esteves MD Feb 18, 2017 09:57
[2017-02-18] MEDS ORDERED: CeFAZolin Inj 2 GM in IV Premix 1 EACH IV ONE (10:20)
--- NOTE | 2017-02-18 10:30 | NUR ---
to OR left for hip surgery
[2017-02-18] MEDS ORDERED: Lactated Ringer's 1,000 ML IV ONE ×3 (10:36→14:03)
[2017-02-18] MEDS ORDERED: Lactated Ringer's 500 ML IV PRN (11:27)
[2017-02-18] MEDS ORDERED: hydrALAZINE 20 mg/mL Inj IVPUSH PRN (11:30)
[2017-02-18] MEDS ORDERED: Labetalol 5 mg/mL 20 mL Inj IV PRN (11:30)
[2017-02-18] MEDS ORDERED: Atropine 0.4 mg/mL Inj IVPUSH PRN (11:30)
[2017-02-18] MEDS ORDERED: EPHEDrine Sulfate 50 mg/mL Inj IVPUSH PRN (11:30)
[2017-02-18] MEDS ORDERED: EPHEDrine Sulfate 50 mg/mL Inj IM PRN (11:30)
[2017-02-18] MEDS ORDERED: HYDROmorphone 1 mg/mL Inj IVPUSH PRN (11:30)
[2017-02-18] MEDS ORDERED: Ondansetron 2 mg/mL 2 mL Inj IVPUSH PRN (11:30)
[2017-02-18] MEDS ORDERED: Bupivacaine-MPF 0.5% 30 mL Inj INFILTRATE ONE (12:20)
--- NOTE | 2017-02-18 13:23 | DRSVH ---
PROCEDURE: X-RAY PELVIS ONE OR TWO VIEWS ([id number]) INDICATIONS: OPERATIVE CONFIRMATION TECHNIQUE: Intra-operative view of the pelvis and hip acquired. COMPARISON: None. FINDINGS: Bones: Intraoperative devices prior to placement of arthroplasty prostheses are in expected position s. No fractures or suspicious bony lesions. Soft tissues: Overlying surgical retractors are present, along with other intraoperative changes. IMPRESSION: Intraoperative images obtained during left hip surgery. Dictated by: Fransico Hawkins M.D. on 02/18/2017 at 13:21 Approved by: Fransico Hawkins M.D. on 02/18/2017 at 13:21
--- NOTE | 2017-02-18 13:43 | PCM.PNMED ---
Subjective Date of Service Feb 18, 2017 Subjective Patient has mild dementia at baseline per family. Eventually consented. Patient denies any pain and does not believe she has fracture despite showing XR and CT images . Exam Vital Signs Vital Sign - Last Date Time Temp Pulse Resp B/P Pulse Ox O2 Delivery O2 Flow Rate FiO2 02/18/17 05:23 36.8 82 18 129/55 92 Room Air 02/17/17 20:29 2.00 Intake and Output 02/17/17 02/17/17 02/18/17 Cumulative From/Thru 14:59 22:59 06:59 02/16/17 23:23 - 02/18/17 05:57 Intake Total 695 ml 200 ml 1176 ml 2414 ml Output Total 250 ml 450 ml 500 ml 1750 ml Balance 445 ml -250 ml 676 ml 664 ml Intake Oral 200 ml 200 ml 400 ml 800 ml IV Total 495 ml 776 ml 1614 ml Output Urine Total 250 ml 450 ml 500 ml 1750 ml # Bowel Movements 0 0 Exam General: Nondistressed, well-developed tired female HEENT: NC/AT, PERRLA, EOM intact. Nontender sinuses, no nasal discharge. Fair dentation, no erythema, nor exudate present in oropharynx. No thyromegaly appreciated. CV: Regular rate and rhythm, no murmurs, gallops, or rubs appreciated RESP: Clear to auscultation bilaterally, no wheezes or rhonchi appreciated ABD: Bowel sounds normal, nondistended, nontender to palpation. EXT: No joint swelling, 1+ edema bilateral lower extremity. Pain with movement of left leg LYMPH: No cervical or axillary adenopathy appreciated NEURO: Symmetric face, cranial nerves grossly intact, strength intact bilaterally upper and lower extremities, sensation to light touch intact bilaterally upper and lower extremities. PSYCH: Oriented 4. Linear and appropriate conversation. Skin: No rashes or ecchymosis appreciated. Scab lower left extremity. IVs and Medications Medications Reviewed: Medications were reviewed in detail Lab and Diagnostics Result Diagram: 02/18/1752402/18/17 05 X-Rays, CTs and MRIs Xray Interpretation: Left femoral neck fracture with about 60% displacement X-Ray Ordered: Femur left Interpretation / Wet Read by: Wet read ED physician Interpretation: Fracture-dislocation PROCEDURE: CT PELVIS WITHOUT CONTRAST ([id number]) INDICATIONS: RULE OUT FRACTURE PELIVE IMPRESSION: 1. Subcapital proximal left femur fracture. 2. Nondisplaced fracture of the right obturator ring. 3. Chronic left obturator ring fracture. Dictated by: Maddy Hwang MD, PhD on 02/17/2017 at 18:15 12-lead ECG Time: 23:56 Interpreted by: ED physician Normal ECG Interpretation: Normal ECG w/ rate of... (71) Cardiac Echo Impressions Interpretation Summary Left ventricular systolic function is normal without focal wall motion abnormalities with the ejection fraction visually estimated to be 60-65%. There is borderline concentric left ventricular hypertrophy with a probable relaxation abnormality of the left ventricle, consistent with normal filling pressures. The right ventricle is normal in size and function. The right ventricular systolic pressure is estimated to be at least 43 mmHg assuming a right atrial pressure of 3 mm Hg. The left atrium is severely dilated and the right atrium is moderately dilated. There is moderate to severe tricuspid regurgitation and mild pulmonic regurgitation but no other significant valvular heart disease. Assessment & Plan Patient is an 89F that presented to the ED post GLF with left hip fracture. She has a history of hypertension, iron deficiency anemia, and fibromyalgia #. Left femur fracture, present on admission and ongoing -Displaced femur neck fracture visualized on xray after a ground level fall -Ortho consulted by ED and patient going to OR today -Pain management with dilaudid -dvt prophylaxis per orthopedics postop -preop workup ,echo unremarkable. No history of CAD. Able to ambulate and take a flight of stairs without chest pain per family #. Hypertension, present on admission and ongoing -Blood pressure 183/75 upon arrival at emergency department -Continue home regimen of metoprolol. Discontinued home HCTZ.will use other BP meds if needed #. Leukocytosis with left shift, present upon admission and ongoing -wbc -Stress reaction versus infection -Negative UA,cxr unremarkable -Procalcitonin x2 and lactic acid negative -No fever or tachycardia, most likely stress reaction #. Normocytic anemia, present upon admission and ongoing -Patient has a history of iron deficiency anemia #. Hyponatremia due to hydrochlorothiazide, present on admission and ongoing -Continue Normal saline 100 ml/hr -Discontinued hydrochlorothiazide .will discharge off HCTZ -Unclear if contributed to the fall # Suspected dementia,presumed chronic dvt ppx per ortho post op GI Prophylaxis: Proton Pump Inhibitor VTE Mechanical Devices: Intermittant Pneumatic CD Resuscitation Status: Limited Interventions (Patient would like CPR but not intubation) Hi Drew MD Feb 18, 2017 13:43
[2017-02-18] MEDS: Lactated Ringer's 1,000 ML IV SCH ×2 (14:42→18:30)
[2017-02-18] MEDS: Phenylephrine 10,000 mCg/mL Inj IVPUSH PRN ×4 (15:10→16:20)
--- NOTE | 2017-02-18 15:31 | DRSVH ---
PROCEDURE: X-RAY PELVIS W/LAT HIP (LT) ([id number]) INDICATIONS: post op TECHNIQUE: AP pelvis and lateral view of the left hip acquired. COMPARISON: [facility], CR, XR PELVIS 1 OR 2VW, 02/18/2017, 12:42. [facility], CR, XR FEMUR 2VW LT, 02/17/2017, 0:32. FINDINGS: Bones: Patient is status post left hip arthroplasty, with hardware components in expected positions. The hip joint appears congruent. The visualized bony structures appear intact. Soft tissues: Overlying postoperative changes are noted. No suspicious soft tissue densities. IMPRESSION: Expected appearance following left hip arthroplasty. Dictated by: Fransico Hawkins M.D. on 02/18/2017 at 15:29 Approved by: Fransico Hawkins M.D. on 02/18/2017 at 15:30
--- NOTE | 2017-02-18 15:49 | OP ---
[address] [address] OPERATIVE REPORT PATIENT: ALOK LAY : 1925 MR#: [id number] ADMIT: 02/17/2017 JOB ID: [id number] DATE OF SURGERY: 02/18/2017 PREOPERATIVE DIAGNOSIS(ES): Displaced left femoral neck fracture. ICD 10 code S72.002A. Additional diagnosis: Right inferior pubic rami fracture. POSTOPERATIVE DIAGNOSIS(ES): Displaced left femoral neck fracture. ICD 10 code S72.002A. Additional diagnosis: Right inferior pubic rami fracture. PROCEDURE: Left hip cemented bipolar hemiarthroplasty, CPT code 87728O/ IMPLANTS UTILIZED: A DePuy #4 Barber stem, cemented, 48 mm bipolar cup, 1.5 mm neck length. Canal medium-sized cement restrictor and 9.25 mm stem centralizer. SURGEON: Ghanshyam Frank MD. TRAFFIC ANALYSIS TECHNICIAN: Tato Loza PA-C. Tato Loza was an integral portion of the procedure to help with retraction and reduction of the prosthesis. ESTIMATED BLOOD LOSS: 950 mL. There were no major large bleeders noted, but the patient did have some generalized oozing during the procedure. ANESTHESIA: General. Sponge and needle count correct. No complications. INDICATIONS: This is an 89-year-old female, fell, sustaining a displaced left femoral neck fracture. She also sustained a nondisplaced right inferior pubic rami fracture. PROCEDURE: Under adequate general anesthesia, the patient was placed in the right lateral decubitus position. Left hip was prepped and draped in sterile fashion. After appropriate time-out was called, a curvilinear incision was fashioned over the posterolateral aspect of the femur. Incision was taken down through the tensor fascia wicho. Care was taken as the gluteus muscle was split to avoid injury to the superior gluteal artery. Charnley retractor was placed in the wound. Piriformis tendon was tagged and released off the proximal femur leaving a cuff of tissue for later repair. A small portion of the remaining external rotators were tagged and removed off of the proximal femur, taking care to avoid any large feeding vessels. The hip capsule was identified. It was incised in a T-fashion and the hip capsule was tagged with 0 Ethibond. Please note, the patient had generalized mild oozing during the procedure but again there were no major bleeders that were visualized. There was one small branch along one of the muscle perforators along the gluteus muscle that was stick tied with 3-0 silk. The femoral head was removed from the acetabulum. It was measured and it was felt that the 48 mm cup would be the best size. A portion of the ligamentum teres was also removed since it was relatively large and this was done with Bovie technique. Utilizing the neck template, the femoral neck cut was made. After the femoral neck cut was made, I then trialed the 48 mm bipolar cup in the acetabulum and this was felt to be a good fit. The femoral wood box maker was then utilized. I then used the canal finder and then lateralizer over the greater trochanter was reamed. The femoral canal was then broached up to a size 4. Calcar reamer was placed on the stem. One x-ray was taken and it was felt that she needed to have a small additional amount of femoral neck cut. The broach was removed. The cut was made and then the canal was rebroached and the calcar re-reamed. A 1.5 mm neck with a 48 mm bipolar cup was then placed on the broach and then reduced in the acetabulum. It was placed through a range of motion. Clinically, the hip appeared to be very stable and leg lengths were also checked. Since the patient had continued to have some mild oozing during the procedure, I felt that some FloSeal would be of benefit to her. I did have this ordered but needed to wait to place that until after the prosthesis was implanted. The canal was then irrigated. A medium canal plug was then placed and the depth was checked. The cement was then mixed and a #4 Barber Ziiosuy stem was then cemented in the proper amount of anteversion. Any excess cement was removed. After the cement was dry, the bipolar head and neck were tapped onto the Brasher taper fit of the stem and then the hip was reduced. The hip was placed through a range of motion. She was placed through a good range of motion and the hip was found to be very stable. Some FloSeal was then placed over the posterior aspect of the joint capsule where she had some mild oozing. The joint capsule was then closed with interrupted sutures of 0 Ethibond. The external rotators were repaired to the edge of the proximal femur with 0 Ethibond. The piriformis tendon was also repaired to the edge of the proximal femur. After the FloSeal was applied, this seemed to control slow oozing along the base of the joint capsule. The Charnley retractor was removed from the hip. The tensor fascia wicho and the gluteus muscle split were repaired with [id number] sutures of #1 Vicryl. Subcutaneous layers were closed with interrupted sutures of 0 and 2-0 Vicryl, and the skin was reapproximated with law. The patient was taken to recovery room in stable condition. Sponge and needle count correct. X-rays in recovery room confirmed good position of the prosthesis. The patient was stable in recovery room. Since she was anemic to begin with and her hematocrit was actually a dry hematocrit as she rarely drinks water, that combined with her blood loss during surgery, the decision was made to begin to transfuse her 1 unit of packed red blood cells in the recovery room. The patient was neurovascularly intact and able to move her foot. CC: [facility] Orthopedics
[2017-02-18] MEDS: fentaNYL-PF 50 mCg/mL 2 mL Inj IVPUSH PRN ×2 (15:55→16:00)
[2017-02-18] MEDS ORDERED: Phenylephrine/NS-PF 100 mCg/mL 5 mL Syringe IVPUSH ONE (16:04)
[2017-02-18] MEDS ORDERED: 0.9% Sodium Chloride 250 ML IV ONE (18:30)
--- NOTE | 2017-02-18 19:32 | PCM.ANEP1 ---
Post Anesthesia PACU Phase 1 Assessment Date of Service: Feb 18, 2017 Vital Signs Vital Signs Date Time Temp Pulse Resp B/P Pulse Ox O2 Delivery O2 Flow Rate FiO2 02/18/17 18:15 74 10 107/54 99 Nasal Cannula 2 02/18/17 17:50 36.6 80 10 88/46 100 Nasal Cannula 2 02/18/17 17:35 73 10 96/40 100 Nasal Cannula 2 02/18/17 16:40 76 12 105/44 100 Nasal Cannula 2 02/18/17 16:20 71 12 80/42 100 Nasal Cannula 2 02/18/17 16:08 74 12 98/34 100 Nasal Cannula 2 02/18/17 16:00 77 14 84/30 100 Nasal Cannula 2 02/18/17 15:50 79 14 97/77 Nasal Cannula 2 02/18/17 15:25 83 94/69 Anesthetic Administered: GA Level of Alertness: Awake, talking XAVIER's with Equal Strength: Yes Pain: No Nausea or Vomiting: No CV Function & Hydration Stable: Yes (after 2 U PRBCs in PACU) Airway Device: none Oxygen Delivery: Nasal Cannula Lungs: Clear to Auscultation, Normal Air Movement PACU Phase 2 Assessment Patient Instructions Provided: N/A Carrington Esteves MD Feb 18, 2017 19:32
[2017-02-18] MEDS: CeFAZolin Inj 2 GM in IV Premix 1 EACH IV SCH (19:52)
--- NOTE | 2017-02-18 20:10 | NUR ---
Post op/blood completion Pt back to [facility] Rm 1011 from PACU at 1845, Alert and talking. Pt denies pain. VSS. PRBC completed at 1950 without reactions. Pt on tele SR 70s per engineering specialist technician. Lin patent and draining ricarda urine. Bulky dressing to left hip is CDI. Orthos intact, Wedge in between legs. SCDs are on.
[2017-02-19] VITALS (11 sets, daily range): BP systolic 89–110; BP diastolic 43–60; PULSE 65–87; RESP 16–18; O2SAT 90–95
[2017-02-19] MEDS: CeFAZolin Inj 2 GM in IV Premix 1 EACH IV SCH (03:45)
--- NOTE | 2017-02-19 05:11 | NUR ---
Pain Pt reporting minimal pain to hip 2/10 and requested Tylenol. On reassessment, pt reporting "little to no pain" Pt has been alert and oriented to self, needs reminders she is in the hospital and her hip was fixed.
[2017-02-19 05:21] LABS: BASOPHILS % (AUTO) 0.1 % (0-3); EOSINOPHILS % (AUTO) 0.2 % (0-5); MONOCYTES % (AUTO) 10.9 % (4-12); Mean Corpuscular Hemoglobin 30.5 pg (27.0-35.0); Mean Corpuscular Volume 89.6 fL (81-100); NEUTROPHILS % (AUTO) 79.7 % (40-74); Platelet Count 173 bil/L (150-400)
[2017-02-19] MEDS: 0.9% Sodium Chloride 1,000 ML IV SCH ×3 (06:33→20:58)
[2017-02-19] MEDS ORDERED: Potassium Chloride 20 mEq SR Tablet PO ONE (06:55)
[2017-02-19] MEDS: HYDROcodone-APAP 5-325 mg Tablet PO PRN ×4 (07:53→20:47)
--- NOTE | 2017-02-19 08:15 | PCM.PNORTH ---
Subjective Date of Service: Feb 19, 2017 Visit Information: Reason for Visit L Hip Fracture Surgery/Surgery Date left hip hemiarthroplasty 02/18/2017 Post-Op Day # 1 Date of Admission: Feb 17, 2017 at 01:27 Hospital Day # Subjective Patient reports minimal pain at the hip. She slept very well last night. She complains of left heel pain. She is now in a foam boot in bed Postop General: No Complaints, No Shortness of Breath, No Chest Pain Pain Management: PO Objective Exam Objective Patient is seen sitting up in bed Vital Signs and I/O Vital Sign - Last Date Time Temp Pulse Resp B/P Pulse Ox O2 Delivery O2 Flow Rate FiO2 02/19/17 04:27 36.4 85 16 105/59 95 Nasal Cannula 2.50 Intake and Output 02/18/17 02/18/17 02/19/17 Cumulative From/Thru 15:00 23:00 07:00 02/16/17 23:23 - 02/19/17 06:28 Intake Total 3000 ml 1950 ml 998 ml 8362 ml Output Total 1350 ml 95 ml 425 ml 3620 ml Balance 1650 ml 1855 ml 573 ml 4742 ml Intake Oral 0 ml 200 ml 1000 ml IV Total 3000 ml 900 ml 798 ml 6312 ml Autotransfusion 350 ml 350 ml Packed Cells 700 ml 700 ml Output Urine Total 400 ml 95 ml 425 ml 2670 ml Estimated Blood Loss 950 ml 950 ml # Bowel Movements 0 Lab & Micro Results Laboratory Tests Test 02/18/17 15:50 02/19/17 04:58 Hemoglobin 6.8g/dL (12.0-15.6) 7.9g/dL (12.0-15.6) Hematocrit 20.7% (35.0-46.0) 23.2% (35.0-46.0) White Blood Count 13.0th/mm3 (3.8-10.1) Red Blood Count 2.59mil/mm3 (3.90-5.20) Mean Corpuscular Volume 89.6fL (81-100) Mean Corpuscular Hemoglobin 30.5pg (27.0-35.0) Mean Corpuscular Hemoglobin Concent 34.1% (32.0-37.0) Red Cell Distribution Width 14.8% (12.3-15.4) Platelet Count 173bil/L (150-400) Neutrophils (%) (Auto) 79.7% (40-74) Lymphocytes (%) (Auto) 8.7% (14-46) Monocytes (%) (Auto) 10.9% (4-12) Eosinophils (%) (Auto) 0.2% (0-5) Basophils (%) (Auto) 0.1% (0-3) Sodium Level 128mEq/L (134-144) Potassium Level 3.1mEq/L (3.5-5.2) Chloride Level 91mEq/L (97-108) Carbon Dioxide Level 22mmol/L (18-29) Blood Urea Nitrogen 15mg/dL (8-27) Creatinine 0.88mg/dL (0.57-1.00) Estimat Glomerular Filtration Rate 87mL/min (>59) Glucose Level 144mg/dL (60-99) Calcium Level 7.0mg/dL (8.5-10.1) Magnesium Level 1.5mg/dL (1.6-2.6) Total Bilirubin 1.0mg/dL (0.0-1.2) Aspartate Amino Transf (AST/SGOT) 33U/L (0-50) Alanine Aminotransferase (ALT/SGPT) 12U/L (0-32) Alkaline Phosphatase 49U/L (25-165) Total Protein 3.8g/dL (6.4-8.4) Albumin 2.5g/dL (3.4-5.0) Microbiology 02/17/17 Blood Culture - Preliminary, Resulted NO GROWTH AFTER 24 HOURS Result Diagram: 02/19/17 0458 02/19/17 0458 General Appearance: Alert, Oriented X3, Cooperative, No Acute Distress Extremities: Distal Pulses Palpable, No Compartment Syndrom Noted, Thigh & Calf Soft/Nontender Postop Sensory Motor: Distal Motor Intact, Distal Sensation Intact, NVI Distally SURGICAL WOUND : Wound Location/Description Left hip: Surgical dressing is clean, dry and intact Incision General Appearance: No Direct Observation Activity: Activity per PT Catheters: Urethral 2 Way Lin Assessment & Plan Impression POD #1 status post left hip bipolar hemiarthroplasty Problems: Plan Weightbearing: Weightbearing as tolerated with front wheeled walker DVT prophylaxis: Lovenox 30 mg subcutaneous BID3 weeks followed by aspirin 325 mg twice a day 3 weeks Physical therapy for transfers, progressive ambulation, therapeutic exercise Wound care: Change dressing on postop day 2 DC Riley today Discharge plan: Discharge to care home facility in 1-2 days. Follow-up plan: In 2 weeks at [facility] with JOSE for wound check and at [address] Frank with x-rays Pain Management: [place] 5/325 g, Tylenol, Dilaudid VTE Prophylaxis: Sub-Q Enoxaparin, SCDs Resuscitation Status: Limited Interventions (Patient would like CPR but not intubation) Haily Dominguez PA-C Feb 19, 2017 08:15
[2017-02-19] MEDS ORDERED: Dexamethasone 4 mg/mL Inj ONE (08:18)
[2017-02-19] MEDS ORDERED: Propofol 10,000 mCg/mL 20 mL Inj ONE (08:18)
[2017-02-19] MEDS ORDERED: HYDROmorphone 1 mg/mL Inj ONE (08:18)
[2017-02-19] MEDS ORDERED: EPHEDrine/NS 5 mg/mL 5 mL Syringe ONE (08:18)
[2017-02-19] MEDS ORDERED: Phenylephrine/NS 100 mCg/mL 10 mL Syringe IVPUSH ONE (08:18)
[2017-02-19] MEDS ORDERED: Ondansetron 2 mg/mL 2 mL Inj ONE (08:18)
[2017-02-19] MEDS ORDERED: Succinylcholine Chloride 20 mg/mL 5 mL Inj ONE (08:18)
[2017-02-19] MEDS ORDERED: fentaNYL-PF 50 mCg/mL 2 mL Inj ONE (08:18)
[2017-02-19] MEDS ORDERED: Glycopyrrolate 0.2 MG/ML 1mL Inj ONE (08:18)
[2017-02-19] MEDS ORDERED: Magnesium Sulf 2 Gm/50mL Water 2 GM in IV Premix 1 EACH IV ONE (09:05)
--- NOTE | 2017-02-19 15:36 | NUR ---
Evaluation completed. Please go to "Notes" then click on "Assessments and Notes" (bottom left corner of screen). Then select appropriate discipline tab on top of screen.
--- NOTE | 2017-02-19 16:08 | PCM.PNMED ---
Subjective Date of Service Feb 19, 2017 Subjective pain controlled ,transfused 1 PRBC in PACU yesterday Exam Vital Signs Vital Sign - Last Date Time Temp Pulse Resp B/P Pulse Ox O2 Delivery O2 Flow Rate FiO2 02/19/17 14:43 36.5 84 18 99/56 95 Nasal Cannula 2.50 Intake and Output 02/18/17 02/18/17 02/19/17 Cumulative From/Thru 14:59 22:59 06:59 02/16/17 23:23 - 02/19/17 06:28 Intake Total 3000 ml 1950 ml 998 ml 8362 ml Output Total 1350 ml 95 ml 425 ml 3620 ml Balance 1650 ml 1855 ml 573 ml 4742 ml Intake Oral 0 ml 200 ml 1000 ml IV Total 3000 ml 900 ml 798 ml 6312 ml Autotransfusion 350 ml 350 ml Packed Cells 700 ml 700 ml Output Urine Total 400 ml 95 ml 425 ml 2670 ml Estimated Blood Loss 950 ml 950 ml # Bowel Movements 0 Exam General: Nondistressed, well-developed tired female HEENT: NC/AT, PERRLA, EOM intact. Nontender sinuses, no nasal discharge. Fair dentation, no erythema, nor exudate present in oropharynx. No thyromegaly appreciated. CV: Regular rate and rhythm, no murmurs, gallops, or rubs appreciated RESP: Clear to auscultation bilaterally, no wheezes or rhonchi appreciated ABD: Bowel sounds normal, nondistended, nontender to palpation. EXT: No joint swelling, 1+ edema bilateral lower extremity. left hip cleanly dressed LYMPH: No cervical or axillary adenopathy appreciated NEURO: Symmetric face, cranial nerves grossly intact, strength intact bilaterally upper and lower extremities, sensation to light touch intact bilaterally upper and lower extremities. PSYCH: Oriented 4. Linear and appropriate conversation. Skin: No rashes or ecchymosis appreciated. Scab lower left extremity. IVs and Medications Medications Reviewed: Medications were reviewed in detail Lab and Diagnostics Result Diagram: 02/19/1745702/19/17457 X-Rays, CTs and MRIs Xray Interpretation: Left femoral neck fracture with about 60% displacement X-Ray Ordered: Femur left Interpretation / Wet Read by: Wet read ED physician Interpretation: Fracture-dislocation PROCEDURE: CT PELVIS WITHOUT CONTRAST ([id number]) INDICATIONS: RULE OUT FRACTURE PELIVE IMPRESSION: 1. Subcapital proximal left femur fracture. 2. Nondisplaced fracture of the right obturator ring. 3. Chronic left obturator ring fracture. Dictated by: Maddy Hwang MD, PhD on 02/17/2017 at 18:15 12-lead ECG Time: 23:56 Interpreted by: ED physician Normal ECG Interpretation: Normal ECG w/ rate of... (71) Cardiac Echo Impressions Interpretation Summary Left ventricular systolic function is normal without focal wall motion abnormalities with the ejection fraction visually estimated to be 60-65%. There is borderline concentric left ventricular hypertrophy with a probable relaxation abnormality of the left ventricle, consistent with normal filling pressures. The right ventricle is normal in size and function. The right ventricular systolic pressure is estimated to be at least 43 mmHg assuming a right atrial pressure of 3 mm Hg. The left atrium is severely dilated and the right atrium is moderately dilated. There is moderate to severe tricuspid regurgitation and mild pulmonic regurgitation but no other significant valvular heart disease. Additional Diagnostics DATE OF SURGERY: 02/18/2017 PREOPERATIVE DIAGNOSIS(ES): Displaced left femoral neck fracture. ICD 10 code S72.002A. Additional diagnosis: Right inferior pubic rami fracture. POSTOPERATIVE DIAGNOSIS(ES): Displaced left femoral neck fracture. ICD 10 code S72.002A. Additional diagnosis: Right inferior pubic rami fracture. PROCEDURE: Left hip cemented bipolar hemiarthroplasty, CPT code 87473S/ IMPLANTS UTILIZED: A DePuy #4 [place] stem, cemented, 48 mm bipolar cup, 1.5 mm neck length. Canal medium-sized cement restrictor and 9.25 mm stem centralizer. SURGEON: Ghanshyam Frank MD. MIDDLEWARE ARCHITECT: Tato Loza PA-C. Tato Loza was an integral portion of the procedure to help with retraction and reduction of the prosthesis. ESTIMATED BLOOD LOSS: 950 mL. There were no major large bleeders noted, but the patient did have some generalized oozing during the procedure. ANESTHESIA: General. Sponge and needle count correct. No complications. Assessment & Plan Patient is an 89F that presented to the ED post GLF with left hip fracture. She has a history of hypertension, iron deficiency anemia, and fibromyalgia #. Left femur fracture s/p Left hip cemented bipolar hemiarthroplasty 02/18, present on admission and ongoing -Displaced femur neck fracture visualized on xray after a ground level fall -Pain management with dilaudid -dvt prophylaxis per orthopedics postop -preop workup ,echo unremarkable. No history of CAD. Able to ambulate and take a flight of stairs without chest pain per family # anemia requiring transfusion -transfused 1 PRBC yesterday -post transfusion Hb stable #. Hypertension, present on admission and ongoing -Blood pressure 183/75 upon arrival at emergency department -Continue home regimen of metoprolol. Discontinued home HCTZ.will use other BP meds if needed #. Leukocytosis with left shift, present upon admission and ongoing -wbc -Stress reaction versus infection -Negative UA,cxr unremarkable -Procalcitonin x2 and lactic acid negative -No fever or tachycardia, most likely stress reaction #. Hyponatremia due to hydrochlorothiazide, present on admission and ongoing -Continue Normal saline 100 ml/hr -Discontinued hydrochlorothiazide .will discharge off HCTZ -Unclear if contributed to the fall # Suspected dementia,presumed chronic dvt ppx per ortho post op dispo;discharge in 1-2 ,likely to SNF GI Prophylaxis: Proton Pump Inhibitor VTE Prophylaxis: Sub-Q Enoxaparin, SCDs VTE Mechanical Devices: Intermittant Pneumatic CD Resuscitation Status: Limited Interventions (Patient would like CPR but not intubation) Hi Drew MD Feb 19, 2017 16:08
--- NOTE | 2017-02-19 19:11 | NUR ---
low UOP pt only had 100cc UOP, call placed to hospitalist
--- NOTE | 2017-02-19 21:50 | NUR ---
BP/activity Pt Metoprolol held due to low BP, 90/58 and 93/55. NS running at 100ml/hr. Pt is on tele and has been Afib 60-70s. Pt given 1 tab of [place] for pain feldt score of 4. Pt has been able to sleep intermittently. Wedge in place.
--- NOTE | 2017-02-19 23:58 | PROG NOTE ---
[address] [address] PROGRESS NOTE PATIENT: ALOK LAY : 1925 MR#: [id number] ADMIT: 02/17/2017 JOB ID: [id number] DATE: 02/19/2017 SUBJECTIVE: This 89-year-old female is status post cemented left hip bipolar hemiarthroplasty on February 18, 2017. The patient was relatively dehydrated upon admission and was anemic on admission. She was relatively oozy during surgery and did require blood transfusions postoperatively. The patient's last H and H today was 7.9 and 23.2. She appeared to be much more clinically stable. Was able to sit with her head of the bed up. Her dressing has been dry on the left hip. Left leg: The patient is able to move the left ankle. Calves are soft. The patient did have hyponatremia on admission, and she still has a low sodium of 128. Potassium low at 3.1, chloride 91, BUN 15, creatinine 0.88. She also has low calcium 7.0, low magnesium 1.5, and low total protein 3.8, and albumin 2.5. IMPRESSION: Status post left hip bipolar hemiarthroplasty for femoral neck fracture and right inferior pubic rami fracture. PLAN: The patient had pre and postoperative anemia. Her CBC will again need to be rechecked, and if her hematocrit drops more she may need an additional unit of blood. The patient may be mobilized to tolerance when she is stable medically. She should remain on telemetry as needed.
[2017-02-20] VITALS (9 sets, daily range): BP systolic 101–136; BP diastolic 46–73; PULSE 74–101; RESP 16–20; O2SAT 92–96
[2017-02-20] MEDS: 0.9% Sodium Chloride 1,000 ML IV SCH ×2 (04:39→16:38)
[2017-02-20 06:14] LABS: BASOPHILS % (AUTO) 0.1 % (0-3); EOSINOPHILS % (AUTO) 1.3 % (0-5); MONOCYTES % (AUTO) 15.6 % (4-12); Mean Corpuscular Hemoglobin 31.1 pg (27.0-35.0); Mean Corpuscular Volume 90.8 fL (81-100); NEUTROPHILS % (AUTO) 70.5 % (40-74); Platelet Count 214 bil/L (150-400)
--- NOTE | 2017-02-20 09:12 | PCM.PNORTH ---
Subjective Date of Service: Feb 20, 2017 Visit Information: Reason for Visit L Hip Fracture Surgery/Surgery Date Post-Op Day # Date of Admission: Feb 17, 2017 at 01:27 Hospital Day # Subjective Status post day #2 left hip hemiarthroplasty. Patient states she feels pretty good today. Has not ambulated very far with physical therapy so far, only has helped in the evenings at home. Postop General: No Complaints, No Shortness of Breath, No Chest Pain Pain Management: PO Objective Exam Objective Patient is alert and oriented 3. Answering questions appropriately. Patient is sitting up in the bed and not in acute distress today. Dressing is clean dry and intact. Upon dressing change, law intact, no erythema, no discharge from the wound. Calf is soft and nontender. Sensation and pulses intact, patient able to wiggle toes. Vital Signs and I/O Vital Sign - Last Date Time Temp Pulse Resp B/P Pulse Ox O2 Delivery O2 Flow Rate FiO2 02/20/17 04:30 36.5 74 18 101/62 92 Room Air 02/19/17 14:43 2.50 Intake and Output 02/19/17 02/19/17 02/20/17 Cumulative From/Thru 15:00 23:00 07:00 02/16/17 23:23 - 02/20/17 05:31 Intake Total 550 ml 970 ml 9882 ml Output Total 100 ml 350 ml 4070 ml Balance 450 ml 620 ml 5812 ml Intake Oral 550 ml 250 ml 1800 ml IV Total 720 ml 7032 ml Autotransfusion 350 ml Packed Cells 700 ml Output Urine Total 100 ml 350 ml 3120 ml Estimated Blood Loss 950 ml # Bowel Movements 0 0 0 Lab & Micro Results Laboratory Tests Test 02/20/17 05:27 White Blood Count 13.7th/mm3 (3.8-10.1) Red Blood Count 2.28mil/mm3 (3.90-5.20) Hemoglobin 7.1g/dL (12.0-15.6) Hematocrit 20.7% (35.0-46.0) Mean Corpuscular Volume 90.8fL (81-100) Mean Corpuscular Hemoglobin 31.1pg (27.0-35.0) Mean Corpuscular Hemoglobin Concent 34.3% (32.0-37.0) Red Cell Distribution Width 15.0% (12.3-15.4) Platelet Count 214bil/L (150-400) Neutrophils (%) (Auto) 70.5% (40-74) Lymphocytes (%) (Auto) 11.8% (14-46) Monocytes (%) (Auto) 15.6% (4-12) Eosinophils (%) (Auto) 1.3% (0-5) Basophils (%) (Auto) 0.1% (0-3) Sodium Level 124mEq/L (134-144) Potassium Level 4.2mEq/L (3.5-5.2) Chloride Level 91mEq/L (97-108) Carbon Dioxide Level 20mmol/L (18-29) Blood Urea Nitrogen 21mg/dL (8-27) Creatinine 1.29mg/dL (0.57-1.00) Estimat Glomerular Filtration Rate 56mL/min (>59) Glucose Level 151mg/dL (60-99) Calcium Level 7.3mg/dL (8.5-10.1) Total Bilirubin 0.4mg/dL (0.0-1.2) Aspartate Amino Transf (AST/SGOT) 43U/L (0-50) Alanine Aminotransferase (ALT/SGPT) 7U/L (0-32) Alkaline Phosphatase 63U/L (25-165) Total Protein 4.3g/dL (6.4-8.4) Albumin 2.5g/dL (3.4-5.0) Microbiology 02/17/17 Blood Culture - Preliminary, Resulted No growth at 2 days; culture examined... Result Diagram: 02/20/1727 02/20/17526 SURGICAL WOUND : Incision General Appearance: No Direct Observation Activity: Activity per PT Catheters: Urethral 2 Way Lin Assessment & Plan Impression Status post day #2 left hip hemiarthroplasty. Patient doing well, pain well controlled. Hemoglobin hanging around 7.1. Not symptomatic. Problems: Plan Weightbearing: Weightbearing as tolerated with front wheeled walker DVT prophylaxis: Lovenox 30 mg subcutaneous BID3 weeks followed by aspirin 325 mg twice a day 3 weeks Physical therapy for transfers, progressive ambulation, therapeutic exercise Wound care: Change dressing on an as-needed basis. AKASH Lin today [facility]charge plan[facility] or tomorrow when hospitalist feels she is medically stable. Follow-up plan: In 2 weeks at [facility] with JOSE for wound check and at [address] Frank with x-rays VTE Prophylaxis: Sub-Q Enoxaparin, SCDs Resuscitation Status: Limited Interventions (Patient would like CPR but not intubation) Tato Loza PA-C Feb 20, 2017 09:10
[2017-02-20] MEDS ORDERED: 0.9% Sodium Chloride 250 ML IV ONE (10:25)
--- NOTE | 2017-02-20 11:32 | NUR ---
HALFWAY TRANSFER : Gave access and faxed facesheet to [facility] per [facility] and MD orders
--- NOTE | 2017-02-20 13:57 | PCM.PNMED ---
Subjective Date of Service Feb 20, 2017 Subjective Pain controlled,Hb 7.1 , will transfuse 1 unit of PRBC.Na 124 noted,will keep NS at 100/h,Lala noted Exam Vital Signs Vital Sign - Last Date Time Temp Pulse Resp B/P Pulse Ox O2 Delivery O2 Flow Rate FiO2 02/20/17 13:41 36.7 86 20 133/73 96 Room Air 02/19/17 14:43 2.50 Intake and Output 02/19/17 02/19/17 02/20/17 Cumulative From/Thru 15:00 23:00 07:00 02/16/17 23:23 - 02/20/17 05:31 Intake Total 550 ml 970 ml 9882 ml Output Total 100 ml 350 ml 4070 ml Balance 450 ml 620 ml 5812 ml Intake Oral 550 ml 250 ml 1800 ml IV Total 720 ml 7032 ml Autotransfusion 350 ml Packed Cells 700 ml Output Urine Total 100 ml 350 ml 3120 ml Estimated Blood Loss 950 ml # Bowel Movements 0 0 0 Exam General: Nondistressed, well-developed tired female HEENT: NC/AT, PERRLA, EOM intact. Nontender sinuses, no nasal discharge. CV: Regular rate and rhythm, no murmurs, gallops, or rubs appreciated RESP: Clear to auscultation bilaterally, no wheezes or rhonchi appreciated ABD: Bowel sounds normal, nondistended, nontender to palpation. EXT: No joint swelling, 1+ edema bilateral lower extremity. left hip cleanly dressed LYMPH: No cervical or axillary adenopathy appreciated NEURO: Symmetric face, cranial nerves grossly intact, strength intact bilaterally upper and lower extremities, sensation to light touch intact bilaterally upper and lower extremities. PSYCH: Oriented 4. Linear and appropriate conversation. Skin: No rashes or ecchymosis appreciated. Scab lower left extremity. IVs and Medications Medications Reviewed: Medications were reviewed in detail Lab and Diagnostics Result Diagram: 02/20/1752602/20/17526 X-Rays, CTs and MRIs Xray Interpretation: Left femoral neck fracture with about 60% displacement X-Ray Ordered: Femur left Interpretation / Wet Read by: Wet read ED physician Interpretation: Fracture-dislocation PROCEDURE: CT PELVIS WITHOUT CONTRAST ([id number]) INDICATIONS: RULE OUT FRACTURE PELIVE IMPRESSION: 1. Subcapital proximal left femur fracture. 2. Nondisplaced fracture of the right obturator ring. 3. Chronic left obturator ring fracture. Dictated by: Maddy Hwang MD, PhD on 02/17/2017 at 18:15 12-lead ECG Time: 23:56 Interpreted by: ED physician Normal ECG Interpretation: Normal ECG w/ rate of... (71) Cardiac Echo Impressions Interpretation Summary Left ventricular systolic function is normal without focal wall motion abnormalities with the ejection fraction visually estimated to be 60-65%. There is borderline concentric left ventricular hypertrophy with a probable relaxation abnormality of the left ventricle, consistent with normal filling pressures. The right ventricle is normal in size and function. The right ventricular systolic pressure is estimated to be at least 43 mmHg assuming a right atrial pressure of 3 mm Hg. The left atrium is severely dilated and the right atrium is moderately dilated. There is moderate to severe tricuspid regurgitation and mild pulmonic regurgitation but no other significant valvular heart disease. Additional Diagnostics DATE OF SURGERY: 02/18/2017 PREOPERATIVE DIAGNOSIS(ES): Displaced left femoral neck fracture. ICD 10 code S72.002A. Additional diagnosis: Right inferior pubic rami fracture. POSTOPERATIVE DIAGNOSIS(ES): Displaced left femoral neck fracture. ICD 10 code S72.002A. Additional diagnosis: Right inferior pubic rami fracture. PROCEDURE: Left hip cemented bipolar hemiarthroplasty, CPT code 75259Y/ IMPLANTS UTILIZED: A DePuy #4 [place] stem, cemented, 48 mm bipolar cup, 1.5 mm neck length. Canal medium-sized cement restrictor and 9.25 mm stem centralizer. SURGEON: Ghanshyam Frank MD. NURSE PARALEGAL: Tato Loza PA-C. Tato Loza was an integral portion of the procedure to help with retraction and reduction of the prosthesis. ESTIMATED BLOOD LOSS: 950 mL. There were no major large bleeders noted, but the patient did have some generalized oozing during the procedure. ANESTHESIA: General. Sponge and needle count correct. No complications. Assessment & Plan Patient is an 89F that presented to the ED post GLF with left hip fracture. She has a history of hypertension, iron deficiency anemia, and fibromyalgia #. Left femur fracture s/p Left hip cemented bipolar hemiarthroplasty 02/18, present on admission and ongoing -Displaced femur neck fracture visualized on xray after a ground level fall -Pain management with dilaudid -dvt prophylaxis per orthopedics postop # anemia requiring transfusion -transfused 1 PRBC 02/18. transfuse 1 more PRBC -post transfusion Hb 7.1 #. Hypertension, present on admission and ongoing -Blood pressure 183/75 upon arrival at emergency department -Continue home regimen of metoprolol. Discontinued home HCTZ.will use other BP meds if needed #. Leukocytosis with left shift, present upon admission,improving -wbc -Stress reaction versus infection -Negative UA,cxr unremarkable -Procalcitonin x2 and lactic acid negative -No fever or tachycardia, most likely stress reaction #. Hyponatremia due to hydrochlorothiazide, present on admission and ongoing -Continue Normal saline 100 ml/hr -Discontinued hydrochlorothiazide .will discharge off HCTZ -Unclear if contributed to the fall # Suspected dementia,presumed chronic dvt ppx per ortho post op dispo;discharge in 1-2 ,likely to SNF GI Prophylaxis: Proton Pump Inhibitor VTE Prophylaxis: Sub-Q Enoxaparin, SCDs VTE Mechanical Devices: Intermittant Pneumatic CD Resuscitation Status: Limited Interventions (Patient would like CPR but not intubation) Hi Drew MD Feb 20, 2017 13:57
--- NOTE | 2017-02-20 14:32 | NUR ---
NUTRITION ASSESSMENT: ASSESS: 89 YO female admitted for leg pain s/p fall with Left femur fracture s/p Left hip cemented bipolar hemiarthroplasty 02/18. Pt currently on a general diet with minimal po intake x 3 days. PMHx: HTN, iron deficiency anemia, Fibromyalgia. LABS: Reviewed. Na 124, Cr 1.29, glu 151, Ca 7.3, Alb 2.5. MEDS: Reviewed. GI: No BM noted since admit. CURRENT WT: 72.8 kg. Admit wt (02/17): 61.5 kg. DIET: General. PO intake 0%-bites x 3 days. EST. NEEDS: 6998-1767 kcals (25-30 kcals/kg BW), 60-95 g protein (1.0-1.5 g/kg BW) NUTRITION DIAGNOSIS: 1.) Inadequate oral intake related to decreased ability to consume sufficient energy as evidenced by current po intake of bites x 3 days. NUTRITION INTERVENTION: 1.) Will add ensure to all trays to encourage increased po intake MONITOR / EVAL: PO intake, labs, nutritional status. Follow per high nutritional risk guidelines.
--- NOTE | 2017-02-20 15:12 | NUR ---
Social Work- Readiness for Discharge/Multidisciplinary Rounds Data: EMR Reviewed. Pt is on day 3 of hospitalization, pt is POD 2. Pt discussed in multidisciplinary rounds, pt is not medically ready for discharge. PT continues to recommend SNF. SW met with pt and daughter Crow at bedside to confirm d/c plan. Pt has been referred to [facility] and has been accepted by [facility] with [facility] to follow pending [facility] authorization. Pt and daughter agreeable to plan, aware that pt could d/c tomorrow. Paperwork in chart, PASRR in folder. All updated and agreeable to plan, SW will continue to follow. Assessment: Pt for whom SNF is medically necessary Plan: Pt likely to d/c to [facility] tomorrow pending [facility] authorization, Dr. Black to follow pt at [facility]. Paperwork in chart, PASRR in folder. All updated and agreeable to plan, SW will continue to follow. Lenora Smith, [employer] HELPER
[2017-02-20] MEDS: HYDROcodone-APAP 5-325 mg Tablet PO PRN ×2 (15:36→21:01)
--- NOTE | 2017-02-20 16:45 | NUR ---
Blood Product Pt educated on s/sx to let nursing staff know, and educated on possible serious adverse effects - consented to blood admin. Pt tolerated 1unit PRBC without issue. Pt with left AC IV with intermittent beeping d/t movement despite using MANDO alarm. Switch order to IVF post blood to right wrist for NS at 100. Care continues.
--- NOTE | 2017-02-20 22:56 | NUR ---
PAIN/AGUSTIN: Pt. c/o pain and crying, given 2 Vicodin. Unable to void per bed conti. Frequently calling asking to get up to go to the bathroom. Per RN report, bladder scan showed over [address] Frank came in to see pt. benigno. OK to re-insert Agustin catheter. 16 Fr. Agustin catheter placed. Immediately pt. put out 1000 ml in Agustin bag. Resting now in bed, sleeping, no other c/o discomfort. On going care.
[2017-02-21 00:21] VITALS: PULSE 102
[2017-02-21] MEDS: 0.9% Sodium Chloride 1,000 ML IV SCH (02:40)
[2017-02-21 05:00] VITALS: BP 124/77; PULSE 80; RESP 18; O2SAT 95
--- NOTE | 2017-02-21 06:02 | NUR ---
AGUSTIN: Total output from Agustin catheter tonight was 2800 ml clear yellow urine. Pt. woke up this am again confused calling her daughter's name. "get me out of here, I am going home, take this thing out of me" referring to her Agustin. Pt. pulling on her Agustin. Attempted to give her some more pain medication but Pt. refused, then went back to sleep. On going care.
[2017-02-21] MEDS: HYDROcodone-APAP 5-325 mg Tablet PO PRN ×2 (08:02→15:03)
[2017-02-21 08:29] LABS: BASOPHILS % (AUTO) 0.2 % (0-3)
[2017-02-21 08:35] LABS: EOSINOPHILS % (AUTO) 1.9 % (0-5); MONOCYTES % (AUTO) 14.7 % (4-12); Mean Corpuscular Hemoglobin 31.3 pg (27.0-35.0); Mean Corpuscular Volume 90.3 fL (81-100); NEUTROPHILS % (AUTO) 72.8 % (40-74); Platelet Count 239 bil/L (150-400)
[2017-02-21 09:11] VITALS: PULSE 89
--- NOTE | 2017-02-21 10:28 | PCM.DIMED ---
Discharge Instructions Date of Service Feb 21, 2017 Dates of Hospitalization Feb 17, 2017 at 01:27 Discharge Diagnosis Discharge Diagnosis #. Left femur fracture s/p Left hip cemented bipolar hemiarthroplasty 02/18, present on admission and ongoing # anemia requiring transfusion due to periop bleeding #. Hypertension, present on admission and ongoing #. Leukocytosis ,reactive , present upon admission,improving #. Hyponatremia due to hydrochlorothiazide, present on admission ,improving # Suspected dementia,presumed chronic Diet Discharge Diet: Low fat, Low Sodium Activity Discharge Activity: Outpatient Physical Therapy ([facility]) Call your provider Call your provider for: Fever or Chills, Shortness of breath, Bleeding, Chest pain, Vomitting, Excessive diarrhea, Weakness (unilateral) Patient Instructions Patient Instructions # You were hospitalized due to left femoral fracture and underwent Left hip cemented bipolar hemiarthroplasty on 02/18. per orthopedics recommendation Weightbearing: Weightbearing as tolerated with front wheeled walker For DVT prophylaxis: Please take Lovenox 30 mg subcutaneous twice for 3 weeks followed by aspirin 325 mg twice a day 3 weeks Physical therapy for transfers, progressive ambulation, therapeutic exercise Wound care: Change dressing on an as-needed basis. # You had perioperative blood loss requiring transfusion of 2 units of PRBC/ blood. # You had hyponatremia/low sodium medication side effect/hydrochlorothiazide. I have discontinued your hydrochlorothiazide.Your blood pressure has been stable and no need for additional blood pressure medication other than your home metoprolol. # you have temporary urinary retention due to recent immobility. Catheter was removed on 02/20 but had to be reinserted due to urinary retention. Please get a voiding trial and catheter removed tomorrow [facility]22 at [facility]. Follow-up Provider: Saad Alonso MD Follow-up with PCP in: 2 weeks (2 weeks after discharge from [facility] facility[facility] Provider: Ghanshyam Frank MD Follow-up in: 6 weeks Follow-up with Mid-level in: 2 weeks ([place] [facility] ) Additional Information Follow-up plan: In 2 weeks at [facility] with PA for wound check and at [address] Frank with x-rays Hi Drew MD Feb 21, 2017 10:27
[2017-02-21] MEDS ORDERED: LOV30 SUBQ (10:29)
[2017-02-21] MEDS ORDERED: ASPI325T32 PO (10:29)
[2017-02-21] MEDS ORDERED: HYDR-4003 PO (10:29)
--- NOTE | 2017-02-21 10:34 | PCM.PNORTH ---
Subjective Date of Service: Feb 21, 2017 Visit Information: Reason for Visit L Hip Fracture Surgery/Surgery Date left hip hemiarthroplasty Post-Op Day # 3 Date of Admission: Feb 17, 2017 at 01:27 Hospital Day # Subjective Patient reports minimal pain. She is taking Tylenol or norco for pain. She is progressing slowly with physical therapy. She will be discharged today to [facility] to continue with her rehabilitation. Postop General: No Complaints, No Shortness of Breath, No Chest Pain Pain Management: PO Objective Exam Objective Patient is seen sitting up in bed Vital Signs and I/O Vital Sign - Last Date Time Temp Pulse Resp B/P Pulse Ox O2 Delivery O2 Flow Rate FiO2 02/21/17 09:11 89 02/21/17 05:00 36.8 18 124/77 95 Room Air 02/19/17 14:43 2.50 Intake and Output 02/20/17 02/20/17 02/21/17 Cumulative From/Thru 15:00 23:00 07:00 02/16/17 23:23 - 02/21/17 05:35 Intake Total 346 ml 1275 ml 1625 ml 34170 ml Output Total 550 ml 2900 ml 7520 ml Balance 346 ml 725 ml -1275 ml 5608 ml Intake Oral 400 ml 600 ml 2800 ml IV Total 346 ml 575 ml 1025 ml 8978 ml Autotransfusion 350 ml Packed Cells 300 ml 1000 ml Output Urine Total 550 ml 2900 ml 6570 ml Estimated Blood Loss 950 ml # Bowel Movements 0 0 Lab & Micro Results Laboratory Tests Test 02/21/17 08:10 White Blood Count 12.2th/mm3 (3.8-10.1) Red Blood Count 2.59mil/mm3 (3.90-5.20) Hemoglobin 8.1g/dL (12.0-15.6) Hematocrit 23.4% (35.0-46.0) Mean Corpuscular Volume 90.3fL (81-100) Mean Corpuscular Hemoglobin 31.3pg (27.0-35.0) Mean Corpuscular Hemoglobin Concent 34.6% (32.0-37.0) Red Cell Distribution Width 14.9% (12.3-15.4) Platelet Count 239bil/L (150-400) Neutrophils (%) (Auto) 72.8% (40-74) Lymphocytes (%) (Auto) 9.3% (14-46) Monocytes (%) (Auto) 14.7% (4-12) Eosinophils (%) (Auto) 1.9% (0-5) Basophils (%) (Auto) 0.2% (0-3) Hematology Comments Rbc Sodium Level 132mEq/L (134-144) Potassium Level 3.5mEq/L (3.5-5.2) Chloride Level 98mEq/L (97-108) Carbon Dioxide Level 21mmol/L (18-29) Blood Urea Nitrogen 16mg/dL (8-27) Creatinine 0.84mg/dL (0.57-1.00) Estimat Glomerular Filtration Rate 91mL/min (>59) Glucose Level 128mg/dL (60-99) Calcium Level 7.3mg/dL (8.5-10.1) Total Bilirubin 1.0mg/dL (0.0-1.2) Aspartate Amino Transf (AST/SGOT) 40U/L (0-50) Alanine Aminotransferase (ALT/SGPT) 8U/L (0-32) Alkaline Phosphatase 69U/L (25-165) Total Protein 4.4g/dL (6.4-8.4) Albumin 2.7g/dL (3.4-5.0) Microbiology 02/17/17 Blood Culture - Preliminary, Resulted No growth at 2 days; culture examined... Result Diagram: 02/21/17 0810 02/21/17 0810 General Appearance: Alert, Oriented X3, Cooperative, No Acute Distress Extremities: Distal Pulses Palpable, No Compartment Syndrom Noted, Thigh & Calf Soft/Nontender Postop Sensory Motor: Distal Motor Intact, Distal Sensation Intact, NVI Distally SURGICAL WOUND : Wound Location/Description Surgical dressing has moderate serous drainage present. No erythema seen. Activity: Activity per PT Catheters: None Assessment & Plan Impression POD #3 status post left hip hemiarthroplasty Problems: Plan Weightbearing: Weightbearing as tolerated with walker DVT prophylaxis: Lovenox 40 mg subcutaneous 3 weeks [DC on 03/10/2017] followed by aspirin 325 mg twice a day 4 weeks Physical therapy for transfers, progressive ambulation, therapeutic exercise, OT Wound care: Nursing, please change dressing today with [place] Dressing prior to discharge to [facility]. Change dressing every 2-3 days or as needed if dressing is soiled. Leave steri strips in place until first post visit. On Sunday, the patient may shower if the wound has no drainage present. Wound may be uncovered to shower. Let soap and water run over the wound, pat dry and apply a new dressing. Discharge plan: Discharge today to [facility] to continue with her rehabilitation Follow-up plan: In 2 weeks at [facility] with JOSE for wound check and at [address] Frank with x-rays Pain Management: [place], Tylenol VTE Prophylaxis: Sub-Q Enoxaparin, SCDs Resuscitation Status: Limited Interventions (Patient would like CPR but not intubation) Haily Dominguez PA-C Feb 21, 2017 10:34
[2017-02-21] MEDS ORDERED: HYDROmorphone 1 mg/mL Inj IVPUSH PRN (10:50)
--- NOTE | 2017-02-21 10:52 | NUR ---
Social Work- Discharge/Multidisciplinary Rounds Data: EMR reviewed. Pt is on day 4 of hospitalization. Pt discussed at bedside multidisciplinary rounds, pt to d/c today. T/C to [facility], Nehal in admissions is agreeable to accepting pt today after another patient is discharged. Nehal anticipates between 430 and 5 but will call DRY BOX OPERATOR as soon as information is known. RN, pt/family updated of this information at bedside. Discharge orders are active, SW created packet and will fax orders and PASRR to [facility]. All updated and agreeable to plan, awaiting transportation coordination. SW will continue to follow. Assessment: Pt for whom SNF is medically necessary Plan: Pt to d/c to [facility] with [facility] to follow, transport via wheelchair van as soon as [facility] has a bed available. All updated and agreeable to plan, SW will continue to follow. ZEESHAN Guaman Addendum: 02/21/17 at 1356 by KAREN SUE Nehal at [facility] confirmed that she will be able to bring in patient today, arranging transportation for 1500. Pt's daughter Crow updated regarding d/c, RN and pt updated at bedside. ZEESHAN Guaman
[2017-02-21 10:58] VITALS: BP 146/64; PULSE 71; RESP 17; O2SAT 96
--- NOTE | 2017-02-21 11:23 | PCM.DIORTH ---
Ortho Discharge Instruction Date of Service: Feb 21, 2017 Dates of Hospitalization Date of Hospital Admission Feb 17, 2017 at 01:27 Providers Admitting Physician: Cheryl Clay DO Primary Care Physician: Saad Alonso MD Attending Physician: Hi Drew MD Activity Discharge Activity-General: Try not to overdue, Be up and about, Balance rest and activity, Other (increase walking a little more each day) Left Lower Extremity: Weight Bearing as tolerated Discharge Assist Device: Front Wheeled Walker Dressing and Incisional Care Discharge Dressing Care: Keep dressing clean, dry & intact Discharge Hygiene: May shower (see instructions below) Additional Instructions Discharge Instructions Weightbearing: Weightbearing as tolerated with walker DVT prophylaxis: Lovenox 40 mg subcutaneous 3 weeks [DC on 03/10/2017] followed by aspirin 325 mg twice a day 4 weeks Physical therapy and OT for transfers, progressive ambulation, therapeutic exercise, ADL's Wound care: Change dressing every 2-3 days or as needed if dressing is soiled. Leave steri strips in place until first post visit. On Sunday02/24/17, the patient may shower if the wound has no drainage present. Wound may be uncovered to shower. Let soap and water run over the wound , pat dry and apply a new dressing. Follow Up Plan Follow Up Plan Follow-up plan: In 2 weeks at [facility] with JOSE for wound check and at [address] Frank with x-rays Haily Dominguez PA-C Feb 21, 2017 11:23
--- NOTE | 2017-02-21 14:18 | NUR ---
received TC from pt's JAMIL Davis at [place], pt is approved for transfer to [facility]. Advised HOME CARE NURSE.
[2017-02-21 15:29] VITALS: BP 174/66; PULSE 79; RESP 18; O2SAT 94
--- NOTE | 2017-02-21 15:37 | NUR ---
Discharge Pt discharged to [facility]; left unit via w/c with [employer] [facility] at 1520. Daughter Crow present and took all pt belongings with her to meet her mom at . IVx2 Dc'd intact, Dressing to left hip CDI - changed with PA prior to dc, Mepilex placed over sacrum d/t skin tear, Lin patent, A&O - continues to be forgetful, family and daughter Crow aware of plan of care upon discharge. Discharge packet put together by CM - hard copy scripts provided within packet. Report called to [facility] of [facility] at 1426 prior to dc. Pt received 1x [place] just prior to dc.
--- NOTE | 2017-02-21 17:31 | PCM.DC.MED ---
Discharge Summary Date of Service Feb 21, 2017 Dates of Hospitalization Date of Hospital Admission Feb 17, 2017 at 01:27 Date of Discharge: Feb 21, 2017 Providers: Admitting Physician: Cheryl Clay DO Primary Care Physician: Saad Alonso MD Attending Physician: Hi Trevizo MD Diagnosis at Time of Discharge Diagnosis at Time of Discharge #. Left femur fracture s/p Left hip cemented bipolar hemiarthroplasty 02/18, present on admission and ongoing # anemia requiring transfusion due to periop bleeding #. Hypertension, present on admission and ongoing #. Leukocytosis ,reactive , present upon admission,improving #. Hyponatremia due to hydrochlorothiazide, present on admission ,improving # Suspected dementia,presumed chronic Consultations ortho Dr [place] Procedures XRay, CTs & MRIs Xray Interpretation: Left femoral neck fracture with about 60% displacement X-Ray Ordered: Femur left Interpretation / Wet Read by: Wet read ED physician Interpretation: Fracture-dislocation PROCEDURE: CT PELVIS WITHOUT CONTRAST ([id number]) INDICATIONS: RULE OUT FRACTURE PELIVE IMPRESSION: 1. Subcapital proximal left femur fracture. 2. Nondisplaced fracture of the right obturator ring. 3. Chronic left obturator ring fracture. Dictated by: Maddy Hwang MD, PhD on 02/17/2017 at 18:15 ECG 12 Lead Time: 23:56 Interpreted by: ED physician Normal ECG Interpretation: Normal ECG w/ rate of... (71) Cardiac Echo Impression Interpretation Summary Left ventricular systolic function is normal without focal wall motion abnormalities with the ejection fraction visually estimated to be 60-65%. There is borderline concentric left ventricular hypertrophy with a probable relaxation abnormality of the left ventricle, consistent with normal filling pressures. The right ventricle is normal in size and function. The right ventricular systolic pressure is estimated to be at least 43 mmHg assuming a right atrial pressure of 3 mm Hg. The left atrium is severely dilated and the right atrium is moderately dilated. There is moderate to severe tricuspid regurgitation and mild pulmonic regurgitation but no other significant valvular heart disease. Other Diagnostics DATE OF SURGERY: 02/18/2017 PREOPERATIVE DIAGNOSIS(ES): Displaced left femoral neck fracture. ICD 10 code S72.002A. Additional diagnosis: Right inferior pubic rami fracture. POSTOPERATIVE DIAGNOSIS(ES): Displaced left femoral neck fracture. ICD 10 code S72.002A. Additional diagnosis: Right inferior pubic rami fracture. PROCEDURE: Left hip cemented bipolar hemiarthroplasty, CPT code 19034G/ IMPLANTS UTILIZED: A DePuy #4 Hoke stem, cemented, 48 mm bipolar cup, 1.5 mm neck length. Canal medium-sized cement restrictor and 9.25 mm stem centralizer. SURGEON: Ghanshyam Frank MD. BANANA GRADER: Tato Loza PA-C. Tato Loza was an integral portion of the procedure to help with retraction and reduction of the prosthesis. ESTIMATED BLOOD LOSS: 950 mL. There were no major large bleeders noted, but the patient did have some generalized oozing during the procedure. ANESTHESIA: General. Sponge and needle count correct. No complications. Brief History per HPI Patient is an 89F that presented to the ED post fall off porch with left hip fracture. She has a history of hypertension, and iron deficiency anemia History obtained from outpatient chart review, patient interview, and ED report Patient reported to the ED after a fall off of a porch. Patient states that she does not recall all of the events secondary to fatigue and medication. Per ED report, daughter witnessed fall and states that it was mechanical. Patient does not have a significant fall history and this is her first broken bone in later life. She denies head trauma, LOC, headache, change in vision, nausea, vomiting. Admits to pain in left leg. At baseline patient is independently ambulatory and lives with daughter. Hospital Course Patient is an 89F that presented to the ED post GLF with left hip fracture. She has a history of hypertension, iron deficiency anemia, and fibromyalgia #. Left femur fracture s/p Left hip cemented bipolar hemiarthroplasty 02/18, present on admission and ongoing -Displaced femur neck fracture visualized on xray after a ground level fall -Pain management with dilaudid -dvt prophylaxis per orthopedics postop # anemia requiring transfusion -transfused 1 PRBC 02/18. transfuse 1 more PRBC on 02/20, -post transfusion Hb 8.1 on day of discharge # urinary retention -scott removed on 02/20 ,patient had retention due toimmobility,plan to discharge with scott and remove at [facility] tomrorw #. Hypertension, present on admission and ongoing -Blood pressure 183/75 upon arrival at emergency department -Continue home regimen of metoprolol. Discontinued home HCTZ.will use other BP meds if needed but not indicated now #. Leukocytosis with left shift, present upon admission,improving -wbc 20 initially -Stress reaction versus infection -Negative UA,cxr unremarkable -Procalcitonin x2 and lactic acid negative -No fever or tachycardia, most likely stress reaction #. Hyponatremia due to hydrochlorothiazide, present on admission and ongoing -treated with Normal saline 100 ml/hr -Discontinued hydrochlorothiazide .will discharge off HCTZ -Unclear if contributed to the fall # Suspected dementia,presumed chronic dvt ppx per ortho post op dispo;discharge to [facility] Exam Vital Signs (Last) Date Time Temp Pulse Resp B/P Pulse Ox O2 Delivery O2 Flow Rate FiO2 02/21/17 15:29 79 18 174/66 94 Room Air 02/21/17 10:58 36.6 02/19/17 14:43 2.50 Exam General: Nondistressed, well-developed tired female HEENT: NC/AT, PERRLA, EOM intact. Nontender sinuses, no nasal discharge. CV: Regular rate and rhythm, no murmurs, gallops, or rubs appreciated RESP: Clear to auscultation bilaterally, no wheezes or rhonchi appreciated ABD: Bowel sounds normal, nondistended, nontender to palpation. EXT: No joint swelling, 1+ edema bilateral lower extremity. left hip cleanly dressed LYMPH: No cervical or axillary adenopathy appreciated NEURO: Symmetric face, cranial nerves grossly intact, strength intact bilaterally upper and lower extremities, sensation to light touch intact bilaterally upper and lower extremities. PSYCH: Oriented 4. Linear and appropriate conversation. Skin: No rashes or ecchymosis appreciated. Scab lower left extremity. Test 02/16/17 23:47 02/17/17 01:34 02/17/17 01:36 02/17/17 06:30 Prothrombin Time 10.4sec (8.1-12.5) Prothromb Time International Ratio 0.97ratio Lactic Acid Level 1.0mmol/L (0.4-2.0) Troponin T 0.010ug/L (0.0-0.011) Hold العراقي Top Tube Received (Received) Hold Urine Received (Received) Urine Color Yellow (YELLOW) Urine Appearance Clear (CLEAR,HAZY) Urine pH 6.0 (5.0-8.0) Urine Specific [place] 1.020 (1.003-1.035) Urine Protein Negativemg/dL (NEG,TRACE) Urine Glucose (UA) Negativemg/dL (NEGATIVE) Urine Ketones Negativemg/dL (NEGATIVE) Urine Occult Blood Trace (NEGATIVE) Urine Nitrite Negative (NEGATIVE) Urine Bilirubin Negative (NEGATIVE) Urine Urobilinogen Normalmg/dL (NORMAL) Urine Leukocyte Esterase Negative (NEGATIVE) Urine RBC 0-2/hpf (0-2) Urine WBC 0-5/hpf (0-5) Urine Epithelial Cells Few/hpf (NONE-MOD) Urine Crystals None seen (NONE SEEN) Urine Bacteria Few/hpf (NONE-FEW) Urine Hyaline Casts None/lpf (NONE) Urine Granular Casts None seen (NONE SEEN) Urine Waxy Casts None seen (NONE SEEN) Urine Red Blood Cell Casts None seen (NONE SEEN) Urine White Blood Cell Casts None seen (NONE SEEN) Urine Mucus None seen (None Seen) Urine Trichomonas None seen (NONE SEEN) Urine Yeast None (NONE SEEN) Urinalysis Comment None Urine Culture Reflexed Not indicated Procalcitonin 0.06ng/mL (0.00-0.08) Test 02/19/17 04:58 02/21/17 08:10 Magnesium Level 1.5mg/dL (1.6-2.6) White Blood Count 12.2th/mm3 (3.8-10.1) Red Blood Count 2.59mil/mm3 (3.90-5.20) Hemoglobin 8.1g/dL (12.0-15.6) Hematocrit 23.4% (35.0-46.0) Mean Corpuscular Volume 90.3fL (81-100) Mean Corpuscular Hemoglobin 31.3pg (27.0-35.0) Mean Corpuscular Hemoglobin Concent 34.6% (32.0-37.0) Red Cell Distribution Width 14.9% (12.3-15.4) Platelet Count 239bil/L (150-400) Neutrophils (%) (Auto) 72.8% (40-74) Lymphocytes (%) (Auto) 9.3% (14-46) Monocytes (%) (Auto) 14.7% (4-12) Eosinophils (%) (Auto) 1.9% (0-5) Basophils (%) (Auto) 0.2% (0-3) Hematology Comments Rbc Sodium Level 132mEq/L (134-144) Potassium Level 3.5mEq/L (3.5-5.2) Chloride Level 98mEq/L (97-108) Carbon Dioxide Level 21mmol/L (18-29) Blood Urea Nitrogen 16mg/dL (8-27) Creatinine 0.84mg/dL (0.57-1.00) Estimat Glomerular Filtration Rate 91mL/min (>59) Glucose Level 128mg/dL (60-99) Calcium Level 7.3mg/dL (8.5-10.1) Total Bilirubin 1.0mg/dL (0.0-1.2) Aspartate Amino Transf (AST/SGOT) 40U/L (0-50) Alanine Aminotransferase (ALT/SGPT) 8U/L (0-32) Alkaline Phosphatase 69U/L (25-165) Total Protein 4.4g/dL (6.4-8.4) Albumin 2.7g/dL (3.4-5.0) Discharge Medications Discharge Medications Aspirin (Aspirin) 325 Mg Tablet 325 MG PO BID Prescribed by: HI TREVIZO MD Enoxaparin (Lovenox) 30 Mg/0.3 Ml Syringe 30 MG SUBQ Q24H Prescribed by: HI TREVIZO MD Metoprolol Tartrate (Metoprolol Tartrate) 50 Mg Tablet 50 MG PO BID (Reported) As needed Hydrocodone-Acetaminophen 5-325 mg (Hydrocodone-Acetaminophen 5-325 mg) 1 Each Tablet 1-2 TABLET PO Q4H PRN PRN For Moderate Pain Prescribed by: HI TREVIZO MD Followup Plan Disposition: SNF Discharge Diet: Low fat, Low Sodium Discharge Activity: Outpatient Physical Therapy ([facility] facility) Patient Instructions # You were hospitalized due to left femoral fracture and underwent Left hip cemented bipolar hemiarthroplasty on 02/18. per orthopedics recommendation Weightbearing: Weightbearing as tolerated with front wheeled walker For DVT prophylaxis: Please take Lovenox 30 mg subcutaneous twice for 3 weeks followed by aspirin 325 mg twice a day 3 weeks Physical therapy for transfers, progressive ambulation, therapeutic exercise Wound care: Change dressing on an as-needed basis. # You had perioperative blood loss requiring transfusion of 2 units of PRBC/ blood. # You had hyponatremia/low sodium medication side effect/hydrochlorothiazide. I have discontinued your hydrochlorothiazide.Your blood pressure has been stable and no need for additional blood pressure medication other than your home metoprolol. # you have temporary urinary retention due to recent immobility. Catheter was removed on 02/20 but had to be reinserted due to urinary retention. Please get a voiding trial and catheter removed tomorrow 02/22 at alf facility. Follow-up Provider: Saad Alonso MD Follow-up with PCP in: 2 weeks (2 weeks after discharge from alf facility.) Provider: Ghanshyam Frank MD Follow-up in: 6 weeks Follow-up with Mid-level in: 2 weeks ([place] [facility] ) Time spent 35 minutes coordinating discharge copies to: Saad Alonso MD, Melaku MD Feb 21, 2017 17:31
== END 2017-02-21 15:20 | DRG 956 ==
LOC: SED 23:01 → EDBD 23:01 → EDUNIT# 23:01 → MOC 02-17 01:27 → OSC 02-17 12:49
PROVIDERS: ADMIT Internal Medicine; ATTEND Internal Medicine
PROC: 30233N1 Transfusion of Nonautologous Red Blood Cells into Peripheral Vein, Percutaneous Approach (ICD-10-PCS; 2017-02-18)
PROC: 0SRS0J9 Replacement of Left Hip Joint, Femoral Surface with Synthetic Substitute, Cemented, Open Approach (ICD-10-PCS; principal; 2017-02-18 09:00)
PROC: 30233N1 Transfusion of Nonautologous Red Blood Cells into Peripheral Vein, Percutaneous Approach (ICD-10-PCS; 2017-02-20)
DX: S72.032A Displaced midcervical fracture of left femur, initial encounter for closed fracture (principal); S32.810A Multiple fractures of pelvis with stable disruption of pelvic ring, initial encounter for closed fracture; E87.1 Hypo-osmolality and hyponatremia; W17.89XA Other fall from one level to another, initial encounter; Y92.008 Other place in unspecified non-institutional (private) residence as the place of occurrence of the external cause; F03.90 Unspecified dementia, unspecified severity, without behavioral disturbance, psychotic disturbance, mood disturbance, and anxiety; I10 Essential (primary) hypertension; D50.9 Iron deficiency anemia, unspecified; D50.0 Iron deficiency anemia secondary to blood loss (chronic); R33.9 Retention of urine, unspecified

== ENCOUNTER → 2017-02-27 | Day surgery (SDC) | payer MEDICARE ==
[~2017-02-27] VITALS: Ht 162.6 cm; Wt 72.5 kg
[~2017-02-27] MED LIST: 0.9% Sodium Chloride 250 ML IV ONE; ACET325T51 PO; ASPI325T32 PO; Al Hydrox/Mg Hydrox/Simeth PO; Benzocaine/Menthol PO; CEFU250T82 PO; FERR-83 PO; Furosemide 10 mg/mL 2 mL Inj IV ONE; HYDR-4003 PO; HYDROcodone-APAP 5-325 mg Tablet PO PRN; LORA-303 PO; LOV30 SUBQ; METO50TA3 PO; OXYMETAZOLINE HCL NASAL; PANT40TA3 PO; PETROLATUM TOPICAL; POLY17PO6 PO; SENN-133 PO; Saline NASAL
[2017-02-27 08:31] VITALS: BP 98/38; PULSE 65; RESP 16; O2SAT 97
[2017-02-27 08:51] VITALS: BP 104/41; PULSE 65; RESP 16; O2SAT 97
[2017-02-27 10:06] VITALS: BP 104/45; PULSE 65; RESP 16
[2017-02-27 13:34] VITALS: BP 120/53; PULSE 87; RESP 16
[2017-02-27 13:59] VITALS: BP 126/51; PULSE 86; RESP 16
[2017-02-27 17:07] VITALS: BP 127/57; PULSE 75; RESP 16
--- NOTE | 2017-02-27 17:56 | NUR ---
PRBC pt arrived via stretcher from [facility] for 2 units prbc tolerated both well over 3.5-4 hours each with 20mg iv lasix between units pt c/o intermit left hip pain so prn tylenol and norco given (see emar) scott cath patent throughout day (see I&O) vss throughout post h/h drawn and results sent back to SNF along with summary of care pt left unit via stretcher from [facility] to return to [facility]
== END | disposition home or self-care (01) ==
LOC: MOCO 07:11
PROVIDERS: ATTEND Neuromusculoskeletal Medicine & OMM
DX: D50.9 Iron deficiency anemia, unspecified (principal)
CPT/HCPCS: 36415; 36430; 85014; 85018; 86922; 96374; J1940; J7050; P9021

== ENCOUNTER 2017-02-28 10:07 | Inpatient (IN) | payer MEDICARE ==
[~2017-02-28] VITALS: Ht 162.6 cm; Wt 69.0 kg
[2017-02-28] VITALS (15 sets, daily range): BP systolic 94–150; BP diastolic 38–96; PULSE 88–121; RESP 16–24; O2SAT 95–100
[~2017-02-28 10:07] MED LIST changes: -0.9% Sodium Chloride 250 ML IV ONE; -ACET325T51 PO; -Al Hydrox/Mg Hydrox/Simeth PO; -Benzocaine/Menthol PO; -CEFU250T82 PO; -FERR-83 PO; -Furosemide 10 mg/mL 2 mL Inj IV ONE; -HYDROcodone-APAP 5-325 mg Tablet PO PRN; -LORA-303 PO; -OXYMETAZOLINE HCL NASAL; -PANT40TA3 PO; -PETROLATUM TOPICAL; -POLY17PO6 PO; -SENN-133 PO; -Saline NASAL
--- NOTE | 2017-02-28 10:21 | ED.REPORT ---
HPI-GI Bleed Date of Service Feb 28, 2017 ED Provider: Dr. Porter The pt is an 89 y/o female with a hx of dementia, HTN and a recent left hip surgery who presents to the ED via EMS from [facility] complaining of a severe episode of hematemesis, onset just prior to arrival. Associated sx include malaise and nausea. She was given Zofran en route. She denies hematochezia, melena and any other sx at this time. She reports feeling normal prior to the vomiting episode today. As per [facility] lab report 2 days ago, her Hct was 18.9 and her hgb was 6.40. Code status: CPR Nursing Notes Stated Complaint: VOMITTING BLOOD Chief Complaint: Female Abdominal Pain Nursing Notes Reviewed: Yes Allergies: Coded Allergies: No Known Allergies (Unverified , 02/28/17) Scheduled Ferrous Sulfate (Ferrous Sulfate) 325 Mg Tablet 325 MG PO DAILY Metoprolol Tartrate (Metoprolol Tartrate) 50 Mg Tablet 50 MG PO BID Polyethylene Glycol 3350 (Miralax) 17 Gm Powd.pack 17 GM PO DAILY Scheduled PRN Acetaminophen (Acetaminophen) 325 Mg Tablet 650 MG PO Q4H PRN PRN For Pain Hydrocodone-Acetaminophen 5-325 mg (Hydrocodone-Acetaminophen 5-325 mg) 1 Each Tablet 1-2 TABLET PO Q4H PRN PRN For Moderate Pain Sennosides (Senna) 8.6 Mg Tablet 8.6-17.2 MG PO BID PRN PRN For Constipation General Time Seen by Provider: 10:25 Chief Complaint Chief Complaint: Vomiting blood Bleeding Severity: Severe Hx Obtained From: Patient Arrived By: Ambulance Onset Occurred: Just prior to arrival Symptom Duration: 1 - 15 minutes Progression Since Onset: Resolved Severity: Current: No pain currently Severity: Maximum: No pain Recent Healthcare: No recent doctor visit Past Medical History Past Medical History Dementia Anemia Reports: Hypertension Past Surgical History left hip Smoking History Never Smoker Social History Lives in [place] Alcohol Use: 1-3 per week Other Social History: Good social support Review of Systems Constitutional: Reports: Malaise GI: Reports: Hematemesis, Nausea, Denies: Hematochezia, Melena Complete sys rev & neg: except as marked. Physical Exam Initial Vital Signs Vital Signs (First) Date Time Temp Pulse Resp B/P Pulse Ox O2 Delivery O2 Flow Rate FiO2 02/28/17 10:13 36.2 105 20 142/49 95 Room Air Initial VS: Reviewed Head / Eyes: Atraumatic, Normocephalic Neck: Supple, Non-tender, Full range of motion Extremities: Vascular intact, Neuro intact, No swelling, No tenderness Skin: Warm, Dry, No cyanosis Neurologic: Alert, Oriented, Nonfocal General/Constitutional: Awake, Alert, No acute distress, Well appearing, Cooperative Respiratory / Chest: Atraumatic, Breath sounds NL, Breath sounds = bilat, No respiratory distress, No rales, No rhonchi, No wheezing Cardiovascular: Heart rate NL, Regular rhythm, Heart sounds NL, No gallop, No murmurs, No rubs Trace edema bilaterally. Abdomen: Atraumatic, Soft, Non-tender, No guarding, No rebound Rectum / Perineum: Atraumatic, Blood - occult heme -, No gross blood, No fecal impaction Skin Skin: Atraumatic, Color NL, Warm, Dry Stage 2 pressure ulcer at the apex of the sacral cleft. Lower Extremity / Pelvis / MS: Atraumatic, Full range of motion, No swelling, Non-tender, No erythema, No deformity, Neurologic intact, Vascular intact Recent left hip surgery. [place] are still intact. Female Genitourinary: Exam deferred Lin catheter in place. Interpretation & Diagnostics Lab Results Interpretation Result Diagram: 02/28/17 1400 02/28/17 1034 Test 02/28/17 10:34 02/28/17 10:46 Prothrombin Time 11.3sec (8.1-12.5) Prothromb Time International Ratio 1.05ratio Sodium Level 131mEq/L (134-144) Potassium Level 4.2mEq/L (3.5-5.2) Chloride Level 94mEq/L (97-108) Carbon Dioxide Level 25mmol/L (18-29) Blood Urea Nitrogen 30mg/dL (8-27) Creatinine 0.83mg/dL (0.57-1.00) Estimat Glomerular Filtration Rate 93mL/min (>59) Glucose Level 141mg/dL (60-99) Calcium Level 7.9mg/dL (8.5-10.1) Total Bilirubin 1.2mg/dL (0.0-1.2) Aspartate Amino Transf (AST/SGOT) 34U/L (0-50) Alanine Aminotransferase (ALT/SGPT) 15U/L (0-32) Alkaline Phosphatase 68U/L (25-165) Total Protein 5.2g/dL (6.4-8.4) Albumin 2.8g/dL (3.4-5.0) Urine Color Straw (YELLOW) Urine Appearance Cloudy (CLEAR,HAZY) Urine pH 7.0 (5.0-8.0) Urine Specific [place] 1.010 (1.003-1.035) Urine Protein Tracemg/dL (NEG,TRACE) Urine Glucose (UA) Negativemg/dL (NEGATIVE) Urine Ketones Negativemg/dL (NEGATIVE) Urine Occult Blood Large (NEGATIVE) Urine Nitrite Positive (NEGATIVE) Urine Bilirubin Negative (NEGATIVE) Urine Urobilinogen 1.0mg/dL (NORMAL) Urine Leukocyte Esterase Moderate (NEGATIVE) Urine RBC 11-50/hpf (0-2) Urine WBC 11-50/hpf (0-5) Urine Epithelial Cells None/hpf (NONE-MOD) Urine Crystals None seen (NONE SEEN) Urine Bacteria Many/hpf (NONE-FEW) Urine Hyaline Casts None/lpf (NONE) Urine Granular Casts None seen (NONE SEEN) Urine Waxy Casts None seen (NONE SEEN) Urine Red Blood Cell Casts None seen (NONE SEEN) Urine White Blood Cell Casts None seen (NONE SEEN) Urine Mucus None seen (None Seen) Urine Trichomonas None seen (NONE SEEN) Urine Yeast None (NONE SEEN) Urinalysis Comment None Urine Culture Reflexed Indicated ECG Interpretation ECG Interpretation: Sinus tachycardia. Rate 99. Atrial premature complex. Old anteroseptal infarct. Time: 10:47 Interpreted by: ED physician Re-Eval/Medical Decision Re-Evaluation/Progress : Time of Eval: 12:00 Re-Evaluation/Progress Note: As per the nurse, the pt has developed a nose bleed. Consultation #1: Referral / Consult Name: Gal Leal MD Call Returned at: 11:10 Transit Planning Director: Will see patient, Agrees with eval, Agrees with plan Consultation #2: Referral / Consult Name: Chase Quiles MD Consulted With: Hospitalist Call Returned at: 12:38 Transit Planning Director: Will see patient, Agrees with eval, Agrees with plan, Accepts admit Counseled Regarding: Diagnosis, Lab results, Need for admission Discharge & Departure Impression: Primary Impression: Upper GI bleed Additional Impression: Epistaxis Disposition: ADMITTED TO HOSPITAL Referrals: Saad Alonso MD (PCP) Scribe Attestation Portions of this note were transcribed by Lianne Hutchins. Dr.Brownell Tonya, personally performed the history,physical exam and medical decision-making;I reviewed and confirmed the accuracy of the information in the transcribed note. Signed by Es Richardson. 02/28/17 copies to: Saad Alonso MD, Kirk H MD Feb 28, 2017 10:21 Lianne Hutchins Feb 28, 2017 10:31 None (NONE SEEN) Urinalysis Comment None Urine Culture Reflexed Indicated ECG Interpretation ECG Interpretation: Sinus tachycardia. Rate 99. Atrial premature complex. Old anteroseptal infarct. Time: 10:47 Interpreted by: ED physician Re-Eval/Medical Decision Re-Evaluation/Progress : Time of Eval: 12:00 Re-Evaluation/Progress Note: As per the nurse, the pt has developed a nose bleed. Consultation #1: Referral / Consult Name: Gal Leal MD Call Returned at: 11:10 Transit Planning Director: Will see patient, Agrees with eval, Agrees with plan Consultation #2: Referral / Consult Name: Chase Quiles MD Consulted With: Hospitalist Call Returned at: 12:38 Transit Planning Director: Will see patient, Agrees with eval, Agrees with plan, Accepts admit Counseled Regarding: Diagnosis, Lab results, Need for admission Discharge & Departure Impression: Primary Impression: Upper GI bleed Disposition: ADMITTED TO HOSPITAL Referrals: Saad Alonso MD (PCP) Scribe Attestation Portions of this note were transcribed by Lianne Hutchins. Dr.Brownell Tonya, personally performed the history,physical exam and medical decision-making;I reviewed and confirmed the accuracy of the information in the transcribed note. Signed by Es Richardson. 02/28/17 copies to: Saad Alonso MD, Kirk H MD Feb 28, 2017 10:21 Lianne Hutchins Feb 28, 2017 10:31
[2017-02-28] MEDS ORDERED: Pantoprazole 4 mg/mL 10 mL Inj IVPUSH ONE (10:30)
[2017-02-28] MEDS ORDERED: Pantoprazole Inj 80 MG, Pharmacy To Mix 1 EA in 0.9% Sodium Chloride 80 ML IV ONE ×2 (10:30)
[2017-02-28 10:38] LABS: BASOPHILS % (AUTO) 0.1 % (0-3); EOSINOPHILS % (AUTO) 0.2 % (0-5); MONOCYTES % (AUTO) 8.1 % (4-12); Mean Corpuscular Hemoglobin 30.2 pg (27.0-35.0); Mean Corpuscular Volume 93.6 fL (81-100); NEUTROPHILS % (AUTO) 85.2 % (40-74); Platelet Count 471 bil/L (150-400)
[2017-02-28 10:46] LABS: INR 1.05 ratio
[2017-02-28 11:17] LABS: APPEARANCE,URINE CLOUDY (CLEAR,HAZY); COLOR,URINE STRAW (YELLOW)
[2017-02-28 11:18] LABS: OCCULT BLOOD,URINE LARGE (NEGATIVE)
[2017-02-28] MEDS ORDERED: POLY17PO6 PO (11:56)
[2017-02-28] MEDS ORDERED: FERR-83 PO (11:56)
[2017-02-28] MEDS ORDERED: SENN-133 PO (12:00)
[2017-02-28] MEDS ORDERED: ACET325T51 PO (12:02)
[2017-02-28] MEDS ORDERED: Alum-Mag Hydrox-Simeth 30 mL Suspension PO PRN (13:10)
--- NOTE | 2017-02-28 13:12 | PCM.HPANE ---
Patient Data Surgeon Admitting Provider: Attending Provider: Primary Care Physician:Saad Alonso MD Other Provider: Reason for Visit Vomitting Blood Ht/WT & BMI Height (Feet): 5 Height (Inches): 4 Weight (Kilograms): 72.73 Body Mass Index Allergies Coded Allergies: No Known Allergies (Unverified , 02/28/17) Past Anesthesia History Anesthesia History: Denies:: Abnormal Airway, Anesthesia Reactions, Fam Anesthesia Reaction Diabetes History Hx Diabetes?: No MRSA MRSA: No Medications Hypertension Medication: Yes Home Meds Incl Beta Ana: Yes Date Beta Ana Taken: Feb 28, 2017 Time Beta Ana Taken: 08:00 Active Scripts Hydrocodone-Acetaminophen 5-325 mg 1 Each Tablet1-2 Tablet PO Q4H PRN For Moderate Pain #30 TABLET Prov:Hi Drew MD 02/21/17 Reported Medications Acetaminophen 325 Mg [id number] Mg PO Q4H PRN For Pain Ref 0 02/28/17 Sennosides (Senna)8.6 Mg Tablet8.6-17.2 Mg PO BID PRN For Constipation 02/28/17 Polyethylene Glycol 3350 (Miralax)17 Gm Powd.pack17 Gm PO DAILY 02/28/17 Ferrous Sulfate 325 Mg [id number] Mg PO DAILY 30 Days Ref 0 02/28/17 Metoprolol Tartrate 50 Mg [id number] Mg PO BID 30 Days Ref 0 02/17/17 Discontinued Reported Medications Hydrochlorothiazide 25 Mg [id number] Mg PO DAILY 30 Days Ref 0 02/17/17 Discontinued Scripts Aspirin 325 Mg [id number] Mg PO BID 21 Days Prov:Hi Drew MD 02/21/17 Enoxaparin (Lovenox)30 Mg/0.3 Ml [id number] Mg SUBQ Q24H #20 Prov:Hi Drew MD 02/21/17 History History of ENT Problems?: No HEENT History: Denies:: Abnormal Airway TMJ Denture Type: None Teeth Condition: Broken Teeth Hx of Heart Problems?: Yes Cardiovascular History: Positive for:: Hypertension Denies:: Congestive Heart Failure Hx of Respiratory Problem?: No Respiratory History: Denies:: Asthma COPD Tuberculosis Hx Neurologic Problems?: No Neurological History: Denies:: CVA Multiple Sclerosis Hx of GI Problems?: No Hx of Problems?: Yes Genitourinary History: Positive for:: Urinary Tract Infection Female Hx: Denies:: Currently Endometriosis Pelvic Inflammatory Problems with Breasts? Hx Musculoskeletal Problems?: Yes Musculoskeletal History: Positive for:: Musculoskeletal Trauma (left hip fx r/ t fall) Hx of Psycho/Social Problems?: No Hx Surgeries?: Yes Hx Any Other Health Problems?: Yes Other History: Positive for:: Hospitalization (hip fx) History Blood Transfusions: Positive for:: Accept Blood Products? Blood Transfusions Denies:: Blood Transfuse Reaction Hx Diabetes: No Hx Alcohol Use: Yes (" A shot a day")Hx Substance Use: No Smoking Status: Never Smoker Stop/Bang Treated for Sleep Apnea?: No Do You Have a CPAP Machine?: No S-Snoring: Do You Snore Loudly: No T-Tired: feel tired, fatigued: Yes O-Obsered: Observed not breath: No P-Blood Pressure: treated: Yes B- Body Mass Index > 35 kg/m2: No A- Age over 50: Yes N- Neck Large Circumference: No G- Gender Male: No SOCO Total Score: 2 Risk Assessment Category Category 1A: Patient has history of documented sleep apnea, and HAS NOT received any narcotic, sedative or anesthesia administration during this stay. Category 1B: Patient has history of documented sleep apnea, and HAS received any narcotic , sedative or anesthesia administration during this stay Category 2: Patient has SUSPECTED Obstructive Sleep Apnea, and HAS received any narcotic , sedative or anesthesia administration during this stay. Category 3: Patient has SUSPECTED Obstructive Sleep Apnea and HAS NOT received narcotic, sedative or anesthesia administration during this stay. Category 4: Outpatient in Procedural Areas with known sleep apnea or who screen positive for High Risk via the STOP/BANG questionnaire. Exam Exam Vital Signs Vital Signs Date Time Temp Pulse Resp B/P Pulse Ox O2 Delivery O2 Flow Rate FiO2 02/28/17 12:48 100 24 133/40 99 Room Air 02/28/17 12:35 113 16 150/38 100 Room Air 02/28/17 10:13 36.2 105 20 142/49 95 Room Air General Appearance: Alert, Cooperative, No Acute Distress HEENT/AIRWAY: MP 2, Neck Movement (limited), Mouth Opening (3fb) Lungs: Normal Air Movement Heart: Exam Unremarkable Meds/Labs/Diagnostics Admission Meds Current Medications Pantoprazole 80 mg 80 mg STAT ONCE IVPUSH Last administered on 02/28/17t 11:36 ; Start 02/28/17 at 10:30; Stop 02/28/17 at 10:32; Status DC Pantoprazole/ Miscellaneous/ Sodium Chloride (Protonix Inj/ Pharmacy To Mix/ Normal Saline) 100 ml @ 10 mls/hr ONCE ONCE IV Last administered on 11:37; Start 02/28/17 at 10:30; Stop 02/28/17 at 20:29 Labs Test 02/28/17 10:34 02/28/17 10:46 White Blood Count 16.6th/mm3 (3.8-10.1) Red Blood Count 2.95mil/mm3 (3.90-5.20) Hemoglobin 8.9g/dL (12.0-15.6) Hematocrit 27.6% (35.0-46.0) Mean Corpuscular Volume 93.6fL (81-100) Mean Corpuscular Hemoglobin 30.2pg (27.0-35.0) Mean Corpuscular Hemoglobin Concent 32.2% (32.0-37.0) Red Cell Distribution Width 18.7% (12.3-15.4) Platelet Count 471bil/L (150-400) Neutrophils (%) (Auto) 85.2% (40-74) Lymphocytes (%) (Auto) 5.1% (14-46) Monocytes (%) (Auto) 8.1% (4-12) Eosinophils (%) (Auto) 0.2% (0-5) Basophils (%) (Auto) 0.1% (0-3) Prothrombin Time 11.3sec (8.1-12.5) Prothromb Time International Ratio 1.05ratio Sodium Level 131mEq/L (134-144) Potassium Level 4.2mEq/L (3.5-5.2) Chloride Level 94mEq/L (97-108) Carbon Dioxide Level 25mmol/L (18-29) Blood Urea Nitrogen 30mg/dL (8-27) Creatinine 0.83mg/dL (0.57-1.00) Estimat Glomerular Filtration Rate 93mL/min (>59) Glucose Level 141mg/dL (60-99) Calcium Level 7.9mg/dL (8.5-10.1) Total Bilirubin 1.2mg/dL (0.0-1.2) Aspartate Amino Transf (AST/SGOT) 34U/L (0-50) Alanine Aminotransferase (ALT/SGPT) 15U/L (0-32) Alkaline Phosphatase 68U/L (25-165) Total Protein 5.2g/dL (6.4-8.4) Albumin 2.8g/dL (3.4-5.0) Urine Color Straw (YELLOW) Urine Appearance Cloudy (CLEAR,HAZY) Urine pH 7.0 (5.0-8.0) Urine Specific [place] 1.010 (1.003-1.035) Urine Protein Tracemg/dL (NEG,TRACE) Urine Glucose (UA) Negativemg/dL (NEGATIVE) Urine Ketones Negativemg/dL (NEGATIVE) Urine Occult Blood Large (NEGATIVE) Urine Nitrite Positive (NEGATIVE) Urine Bilirubin Negative (NEGATIVE) Urine Urobilinogen 1.0mg/dL (NORMAL) Urine Leukocyte Esterase Moderate (NEGATIVE) Urine RBC 11-50/hpf (0-2) Urine WBC 11-50/hpf (0-5) Urine Epithelial Cells None/hpf (NONE-MOD) Urine Crystals None seen (NONE SEEN) Urine Bacteria Many/hpf (NONE-FEW) Urine Hyaline Casts None/lpf (NONE) Urine Granular Casts None seen (NONE SEEN) Urine Waxy Casts None seen (NONE SEEN) Urine Red Blood Cell Casts None seen (NONE SEEN) Urine White Blood Cell Casts None seen (NONE SEEN) Urine Mucus None seen (None Seen) Urine Trichomonas None seen (NONE SEEN) Urine Yeast None (NONE SEEN) Urinalysis Comment None Urine Culture Reflexed Indicated Plan Impression Patient chart reviewed, patient interviewed and anesthestic plan with risks, benefits, and alternatives discussed, and informed consent obtained. NPO per Anesth. Guidelines: Yes ASA Physical Status: ASA3 Severe Disease Anesthetic Plan: GA Bene/Risks/Altern/Consents: Yes HP Complete Prior to Induction: Yes Minoo Robbins MD Feb 28, 2017 13:12 Dwayne Padilla MD Feb 28, 2017 18:13
[2017-02-28] MEDS ORDERED: Propofol 10,000 mCg/mL 20 mL Inj ONE (13:13)
[2017-02-28] MEDS ORDERED: Ondansetron 2 mg/mL 2 mL Inj ONE (13:13)
--- NOTE | 2017-02-28 13:40 | NUR ---
Admit Pt admitted to [facility] room 1002 at 1340 via stretcher. Pt tolerated sliding to bed with no c/o pain. Pt alert to self and time but confused about place. Pt concerned about family being notified of being in the hospital. Pt denied any pain. Left hip dressing C/D/I. Denies numbness and tingling. Cap refill WNL extremities pink and warm to touch. No active nose bleed at this moment. Pt denies nausea or abd pain. Pt stated when MD touched belly she had 5/10 abd pain. Protonix gtt running. Lin catheter patent and draining to gravity. Pt oriented to room and call light. [place] alarm on.
[2017-02-28] MEDS ORDERED: Pantoprazole Inj 80 MG in 0.9% Sodium Chloride 80 ML IV SCH (13:55)
[2017-02-28] MEDS: Ondansetron 2 mg/mL 2 mL Inj IVPUSH PRN ×2 (14:14→19:42)
[2017-02-28 14:16] LABS: BASOPHILS % (AUTO) 0.1 % (0-3); EOSINOPHILS % (AUTO) 0.3 % (0-5); MONOCYTES % (AUTO) 8.2 % (4-12); Mean Corpuscular Hemoglobin 30.7 pg (27.0-35.0); Mean Corpuscular Volume 94.1 fL (81-100); NEUTROPHILS % (AUTO) 82.5 % (40-74); Platelet Count 480 bil/L (150-400)
--- NOTE | 2017-02-28 14:37 | PCM.HPMED ---
Subjective Date of Service Feb 28, 2017 Primary Provider: Admitting Physician: Chase Quiles MD Primary Care Physician: Saad Alonso MD Attending Physician: Chase Quiles MD Chief Complaint: Witnessed episode of hematemesis History of Present Illness: Ms. Jodi Fierro is an 89 year old lady with a history of dementia, HTN and a recent left hip surgery (~ 11 days ago) who presents to the ED via EMS from [facility] complaining of a severe episode of hematemesis, onset just prior to arrival and new onset epistaxis in the ED. She denies hematochezia, melena, abdominal pain, chest pain, shortness of breath. She reports feeling normal prior to the vomiting episode today. OF note on discharge 11 days ago her Hgb was 8.1. and As per [facility] lab report 2 days ago her hgb was 6.40. Patient is a rather poor historian. Review of Systems: A comprehensive review of systems was conducted with the patient and found to be negative except as above in the History of Present Illness. Allergies Coded Allergies: No Known Allergies (Unverified , 02/28/17) Home Medications Ferrous Sulfate (Ferrous Sulfate) 325 Mg Tablet 325 MG PO DAILY Metoprolol Tartrate (Metoprolol Tartrate) 50 Mg Tablet 50 MG PO BID Polyethylene Glycol 3350 (Miralax) 17 Gm Powd.pack 17 GM PO DAILY Scheduled PRN Acetaminophen (Acetaminophen) 325 Mg Tablet 650 MG PO Q4H PRN PRN For Pain Hydrocodone-Acetaminophen 5-325 mg (Hydrocodone-Acetaminophen 5-325 mg) 1 Each Tablet 1-2 TABLET PO Q4H PRN PRN For Moderate Pain Sennosides (Senna) 8.6 Mg Tablet 8.6-17.2 MG PO BID PRN PRN For Constipation PMH Dementia HTN Surgical History Recent L hip arthroplasty Family History Mother had "heart disease" Father had Diabetes Social History Hx Alcohol Use: Yes (" A shot a day") Hx Substance Use: No Hx Tobacco Use: No Smoking Status: Never Smoker Exam Vital Signs Vital Sign - Last Date Time Temp Pulse Resp B/P Pulse Ox O2 Delivery O2 Flow Rate FiO2 02/28/17 13:56 36.8 105 17 130/96 96 Room Air Exam General: No acute distress, well-developed, well-nourished, appropriately interactive HEENT: Normocephalic, atraumatic. External ears without defect. Pupils equal, round, and reactive to light and accommodation. Anicteric sclerae, moist conjunctivae, and no lid lag. Oropharynx free of erythema and cobble stoning with moist mucosa, no visible signs of active epistaxis Neck: Supple with full range of motion. No jugular venous distension. No bruits. No lymphadenopathy or thyromegaly. Cardiovascular: Irregular rate and irregular rhythm with no murmurs, rubs, or gallops appreciated Pulmonary: Clear to auscultation bilaterally with no crackles, wheezes, or rhonchi. Normal respiratory effort with no use of accessory muscles. Abdomen: Bowel tones present. Soft, nontender, nondistended. No hepatosplenomegaly or masses appreciated. Extremities: No clubbing, cyanosis, trace edema bilaterally, or lymphadenopathy appreciated. Skin: Normal temperature, turgor, and texture; no rash, ulcers, or subcutaneous nodules appreciated. Recent left hip surgery. [place] are still intact. Stage 2 pressure ulcer at the apex of the sacral cleft. Neurological: Cranial nerves grossly intact. Normal muscle strength, tone, and bulk. Reflexes, coordination, and sensory function within normal limits. No known gait impairment. Psychiatric: Normal mood and affect. Alert and oriented to person, place, and time. Memory loss evident. Lab and Diagnostics Result Diagram: 02/28/17 1400 02/28/17 1034 Assessment & Plan # Episode of Hematemesis, Epistaxis. Witnessed episode of hematemesis at [facility] and recent immobilization suggests bleeding esophageal ulceration, however with recent epistaxis this confounds the picture. Nonetheless, with tachycardia and anemia patient requires upper endoscopy. - Continue supportive measures including IV fluids. - Continue PPI ggt. - NPO. - Upper endoscopy today. # Hypertension # Dementia Pain Evaluation: Adequate Pain Control Attending Statement Patient seen and examined. Agree with assessment and plan as described by Dr Ng. NOBLE NG DO Feb 28, 2017 14:37 Gal Leal MD Feb 28, 2017 23:02
--- NOTE | 2017-02-28 14:52 | NUR ---
Emesis Pt had episode emesis x1. Small bright red in color. MD notified. Zofran given. Will continue to monitor.
--- NOTE | 2017-02-28 15:56 | PCM.HPMED ---
Subjective Date of Service Feb 28, 2017 Primary Provider: Admitting Physician: Chase Quiles MD Primary Care Physician: Saad Alonso MD Attending Physician: Chase Quiles MD Admit Status: From the Emergency Department, Admit to [place] Team Chief Complaint: hematemesis History of Present Illness: Ms. Jodi Fierro is an 89 year old lady with a history of dementia, HTN and a recent left hip surgery (~ 11 days ago), Acute Anemia s/p recent 2 units of packed RBCs 02/27/17 who presents to the ED via EMS from [facility] complaining of a severe episode of hematemesis and epistaxis. History is obtained from daughter and patient. Patient is poor historian. Patient says that she does not recall having episodes of hematemesis and thinks it was probably less than the third of a cup. She does have epigastric pain. Denied any history of ulcers. Patient was sent to [facility] yesterday , 02/27, received 2 units of PRBC. No documentation of GI bleed during that visit. Patient does not have a history of known GI bleeds per daughter however has had episodes of epistaxis over the last week. Per family patient had a colonoscopy earlier this year, unclear results. 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 Review of Systems: 12 point review of symptoms negative except for that in history of present illness Allergies Coded Allergies: No Known Allergies (Unverified , 02/28/17) Home Medications Ferrous Sulfate (Ferrous Sulfate) 325 Mg Tablet 325 MG PO DAILY Metoprolol Tartrate (Metoprolol Tartrate) 50 Mg Tablet 50 MG PO BID Polyethylene Glycol 3350 (Miralax) 17 Gm Powd.pack 17 GM PO DAILY Scheduled PRN Acetaminophen (Acetaminophen) 325 Mg Tablet 650 MG PO Q4H PRN PRN For Pain Hydrocodone-Acetaminophen 5-325 mg (Hydrocodone-Acetaminophen 5-325 mg) 1 Each Tablet 1-2 TABLET PO Q4H PRN PRN For Moderate Pain Sennosides (Senna) 8.6 Mg Tablet 8.6-17.2 MG PO BID PRN PRN For Constipation PMH dementia, HTN and a recent left hip surgery (~ 11 days ago), Acute Anemia s/p recent 2 units of packed RBCs 02/27/17 Surgical History L hip arthroplasty- 02/2017 Family History Diabetes- Mother. Social History Hx Alcohol Use: Yes (" A shot a day") Hx Substance Use: No Hx Tobacco Use: No Smoking Status: Never Smoker Exam Vital Signs Vital Sign - Last Date Time Temp Pulse Resp B/P Pulse Ox O2 Delivery O2 Flow Rate FiO2 02/28/17 13:56 36.8 105 17 130/96 96 Room Air Exam Gen: NAD, AOx3 HEENT: NCAT, PERRLA, EOMI, MMM, Nares- small amount of dried blood evident. sclera anicteric. Neck: Soft, supple, no thyromegaly/JVD/LAD. Resp: CTAB, no R/R/W. CV: S1 S2, Tachycardic, No M/R/G Abd: Soft, (+) BS, ND, Mild Epigatric pain on palpation. Ext: +PP, Trace edema bilaterally. Skin: Stage 2 pressure ulcer at the apex of the sacral cleft. left hip surgical site- [place] intact. c/d/i. Neuro/Psych: Cooperative, appr mood/affect. CN II-XII grossly intact. No focal deficits. Lab and Diagnostics Result Diagram: 02/28/17 1400 02/28/17 1034 12-lead ECG Sinus tachycardia. Rate 99. Atrial premature complex. Old anteroseptal infarct. Assessment & Plan Ms. Jodi Fierro is an 89 year old lady with a history of dementia, HTN and a recent left hip surgery (~ 11 days ago), Acute Anemia s/p recent 2 units of packed RBCs 02/27/17 who presents to the ED via EMS from [facility] complaining of a severe episode of hematemesis and epistaxis. #Upper GIB of unclear etiology, POA, active. While pt is having epistaxis need to rule out other etiology like Peptic Ulcer given Epigastric Pain. Pt is HD stable, although tachycardic. Hb on admit was 8.9 (Although this is after 2u pRBC day prior to admit). As per [facility] lab report 2 days ago, her Hct was 18.9 and her hgb was 6.40. -GI, Dr. Leal consulted. Will perform EGD on 9/27/17. -Started Protonix infusion. -Keep NPO. #Epistaxis- poa, active- unclear etiology. Doesn't appear to be significant bleeding. Consider Afran nasal spray if continues. # Hypertension- hold hm meds given active bleed. Resume Metoprolol as tolerates. # Dementia- chronic, stable. at baseline per daughter. Acetaminophen for mild pain when necessary. Bowel regimen Senna and MiraLAX scheduled and PRN. Zofran when necessary for nausea and vomiting. Status- Patient is admitted under inpatient status expected length of stay greater than 2 midnights due to severity of presenting symptoms, risk of adverse events, and complexity of treatment plan. Pain Evaluation: Adequate Pain Control GI Prophylaxis: Proton Pump Inhibitor VTE Mechanical Devices: Intermittant Pneumatic CD Resuscitation Status: CPR: Attempt Resuscitation Chase Quiles MD Feb 28, 2017 15:55
--- NOTE | 2017-02-28 16:45 | PCM.ADCARE ---
Advance Care Planning Note Purpose of Encounter: Discuss Code Status Parties in Attendance: Daughter, Patient Decisional Capacity: Patient has Capacity to make decisions. Subjective: Patient is an 89 year old lady with a history of dementia, HTN and a recent left hip surgery (~ 11 days ago), Acute Anemia s/p recent 2 units of packed RBCs 02/27/17 who presents to the ED via EMS from [facility] complaining of a severe episode of hematemesis and epistaxis Objective: Required 2 units of packed RBCs day prior to admission. Goals of Care Determinations: Patient would like to get an EGD for further evaluation and treatment this acute gastrointestinal bleed. She was also confirmed that she would like intervention if a treatable cause found Plan: Pt to get EGD today due to acute bleeding. Patient would like further interventions to improve quality of life CODE STATUS: Full code Time Spent Adv.Care Plannin minutes Adv. Care Plan Documenation: Documented in EMR Chase Quiles MD Feb 28, 2017 16:45
[2017-02-28] MEDS: MeTOProlol 1 mg/mL 5 mL Inj IVPUSH SCH ×2 (17:39→23:22)
--- NOTE | 2017-02-28 18:06 | NUR ---
Off Unit Pt off unit to ENDO.
[2017-02-28] MEDS ORDERED: Lactated Ringer's 1,000 ML IV ONE (18:11)
--- NOTE | 2017-02-28 18:38 | PCM.ANEP1 ---
Post Anesthesia PACU Phase 1 Assessment Vital Signs 114/65, 90, 96%, 15 Vital Signs Date Time Temp Pulse Resp B/P Pulse Ox O2 Delivery O2 Flow Rate FiO2 02/28/17 18:01 36.5 97 16 114/62 98 Room Air 02/28/17 17:42 121 132/68 02/28/17 17:36 118 02/28/17 16:37 36.6 111 16 138/67 98 Room Air 02/28/17 13:56 36.8 105 17 130/96 96 Room Air 02/28/17 12:48 100 24 133/40 99 Room Air 02/28/17 12:35 113 16 150/38 100 Room Air Anesthetic Administered: MAC Level of Alertness: Sleepy, easy to arouse Pain: No Nausea or Vomiting: No CV Function & Hydration Stable: Yes (after 2 U PRBCs in PACU) Airway Device: Oxygen Delivery: Nasal Cannula Lungs: Normal Air Movement Dermatome Level: Full Sensation PACU Phase 2 Assessment Complications: No Follow up Care: No Patient Instructions Provided: N/A Dwayne Padilla MD Feb 28, 2017 18:38
[2017-02-28 20:12] LABS: BASOPHILS % (AUTO) 0.2 % (0-3); EOSINOPHILS % (AUTO) 0.3 % (0-5); MONOCYTES % (AUTO) 8.8 % (4-12); Mean Corpuscular Hemoglobin 30.6 pg (27.0-35.0); Mean Corpuscular Volume 94.4 fL (81-100); NEUTROPHILS % (AUTO) 81.6 % (40-74); Platelet Count 471 bil/L (150-400)
[2017-02-28] MEDS: Sodium Chloride NAS 45 mL Spray NASAL SCH ×2 (21:54→23:30)
--- NOTE | 2017-02-28 22:59 | CONS ---
[address] [address] CONSULTATION REPORT PATIENT: ALOK LAY : 1925 MR#: [id number] ADMIT: 02/28/2017 JOB ID: [id number] DATE OF SERVICE: CHIEF COMPLAINT: Epistaxis. HISTORY OF PRESENT ILLNESS: This is an 89-year-old female patient who was admitted to the hospital for hematemesis. She has a history of dementia and had fallen earlier in the month and had a fracture of her hip. She underwent surgery to reduce this 11 days ago and was admitted to a group home facility for observation. There, she was found to have anemia and was treated with 2 units of packed red blood cells, and just prior to admission to [facility] was found to have hematemesis and possible nosebleeds. On admission, Gastroenterology was consulted and the patient underwent an EGD which demonstrated no obvious source of bleeding, but which did demonstrate blood collected in the hypopharynx. Otolaryngology was consulted to evaluate for an upper aerodigestive source of her bleeding. The patient states that she does have a history of epistaxis but does not recall if she has ever had it treated. She does have a history of dementia; and therefore, may not recall. She is not on any blood thinners. Her blood pressure is reasonably controlled and she is not actively bleeding from her nose on examination. Past medical history and past surgical history, as well as family and social history, are all listed on the intake H and P, and they are essentially noncontributory save for the patient's dementia, her history of epistaxis, her normalized blood pressure, and her lack of anticoagulants medications. REVIEW OF SYSTEMS: Is essentially negative per the patient. PHYSICAL EXAMINATION: Generally: The patient is in no acute distress. She is pleasant and cooperative with the examination. Examination of the head demonstrates she is normocephalic and atraumatic. Examination of the eyes demonstrates normal pupil, irises, sclerae, and her extraocular muscles are intact. Examination of the ears demonstrates no external deformity. Examination of the neck demonstrates no palpable masses or lesions. A midline trachea. Examination of the patient's mouth demonstrates normal lips, tongue, floor of mouth, hard and soft palate. I see no obvious bleeding coming from the nasopharynx within the patient's oropharynx. Examination of the nose demonstrates no significant external nasal deformity. Examination by anterior rhinoscopy demonstrates a clot in the right nostril, but no active bleeding. This clot was removed and demonstrated a very slow oozing bleed coming from the anterior septum on the right hand side. The nose was then examined using nasal endoscopy bilaterally with findings listed below. After obtaining verbal consent, the nose was anesthetized topically and decongested with a combination of 2% lidocaine spray and oxymetazoline spray. The flexible fiberoptic nasal endoscope was then used to evaluate the nasal cavity bilaterally. There was no bleeding identified whatsoever on the left hand side. On the right hand side the only visible source of bleeding was the space on the anterior septum on the right hand side as previously described. After obtaining consent, and discussing the risks, to include bleeding, infection, scarring, perforation of the septum, need for additional treatments, the patient was treated topically with silver nitrate cautery in caudal right nasal septum. She tolerated this well with no complications and no bleeding was noted after treatment. ASSESSMENT AND PLAN: This is an 89-year-old female patient with a history of hematemesis and epistaxis with the only identified source of bleeding being epistaxis from caudal right nasal septum. Her epistaxis was not severe, but was mild and continuous and was treated successfully with silver nitrate. I can see no other upper aerodigestive source for her bleeding and I suspect that this likely was the source. As to whether or not it was the source of her acute anemia, that is more difficult to tell. This could very well be anemia after her hip surgery as her nasal bleeding was very minor, and it seems highly unlikely that this would result in enough of a loss of hematocrit to require red blood cells, especially in a patient without anticoagulation, whereas in a patient with anticoagulation that is certainly possible. Therefore; I would still be suspect for potential other source of bleeding and will continue to follow her if her nose does bleed. I also wrote the following recommendations. 1. Saline nasal spray every two hours while awake. 2. Vaseline ointment just barely within the inside of the nares bilaterally before bedtime on a nightly basis for the next two weeks. 3. Follow up at [facility] in 2-3 weeks for repeat evaluation or earlier if there are problems.
[2017-03-01] VITALS (10 sets, daily range): BP systolic 100–122; BP diastolic 44–66; PULSE 86–106; RESP 16–18; O2SAT 94–97
[2017-03-01] MEDS: Sodium Chloride NAS 45 mL Spray NASAL SCH ×10 (00:30→20:38)
[2017-03-01] MEDS: MeTOProlol 1 mg/mL 5 mL Inj IVPUSH SCH ×4 (05:22→23:10)
[2017-03-01 05:41] LABS: BASOPHILS % (AUTO) 0.2 % (0-3); EOSINOPHILS % (AUTO) 0.9 % (0-5); MONOCYTES % (AUTO) 10.8 % (4-12); Mean Corpuscular Hemoglobin 30.1 pg (27.0-35.0); Mean Corpuscular Volume 94.9 fL (81-100); NEUTROPHILS % (AUTO) 76.8 % (40-74); Platelet Count 463 bil/L (150-400)
--- NOTE | 2017-03-01 06:20 | NUR ---
Shift note/a-fib/constipation Patient slept most of shift with on and off complaints of needing to have a BM, had one small BM beginning of shift with frequent flatus. Toward end of shift patient c/o increased "bowel" pain and needing to have a BM but stated "it hurt". Abdomen soft, with active bowel tones in all quadrants. No stool softeners had been ordered, MD aware orders to be put in. Will continue to monitor. Per tele patient in a-fib, no apparent history of a-fib, MD aware. Will continue to monitor.
[2017-03-01] MEDS ORDERED: Polyethylene Glycol (PEG) 17 Gm Powder PO ONE (09:55)
[2017-03-01] MEDS ORDERED: 0.9% Sodium Chloride 250 ML ONE (10:21)
[2017-03-01] MEDS: cefTRIAXone Inj 1,000 MG in Dextrose 5% Minibag Plus 50 ML IV SCH (10:28)
[2017-03-01] MEDS: Ondansetron 2 mg/mL 2 mL Inj IVPUSH PRN ×2 (14:36→20:56)
--- NOTE | 2017-03-01 16:12 | NUR ---
Social Work: Initial Assessment Data: See initial assessment. Patient is a 89 year old female who was admitted on 02/28/17 for upper GI bleed per H&P. Patient's insurance is [facility] [place] Medicare and her PCP is Saad Alonso MD. Patient was recently discharged on 02/21/17 and transferred to [facility] for rehab. MICHELLE called [facility] and spoke with Nehal to confirm that patient would be able to return to SNF when medically stable. Nehal was able to confirm that patient would be able to return to SNF with authorization approval. Prior to transferring to [facility], she lived at home with her daughter in [place]. Patient was I at baseline and was able to perform all of her ADLs and care needs. Patient does not have a DPOA or AD at this time however, resources were provided to patient and family during previous admission. Patient does not drive and relies on her children for transportation needs. Patient has no hx of home health services or VA benefits. Upon discharge, patient will return to [facility] to continue rehab. SW met with patient and provided contact number if patient or family had any questions or concerns. SW will continue to follow. Assessment: Patient will likely return to [facility] rehab pending insurance authorization. Plan: Patient will likely return to [facility] rehab pending insurance authorization.Transportation will be arranged by [facility]. SW will continue to follow for additional needs. ZEESHAN Green Addendum: 03/01/17 at 1623 by KWESI LEONG Amended: Links added.
[2017-03-01] MEDS: 0.9% Sodium Chloride 250 ML IV SCH (16:34)
[2017-03-02] VITALS (9 sets, daily range): BP systolic 111–148; BP diastolic 55–86; PULSE 72–103; RESP 16–20; O2SAT 96–97
[2017-03-02] MEDS: Sodium Chloride NAS 45 mL Spray NASAL SCH ×20 (00:30→22:30)
--- NOTE | 2017-03-02 04:45 | NUR ---
Tarry Stools/Bladder Scan Patient has had two large tarry, black stools this shift. One sample sent to lab. Patient not able to communicate when need to have a bm. Patient not spontaneously voiding. Denies pain or being uncomfortable. Bladder scan indicated 388ml residual and 417 ml residual. Patient requested she wanted medication to help sleep. Dr. Clay paged. No response as of yet. Patient would like to wait to be catheterized . RN in room to monitor coughing and nausea. VSS. Call light within reach. Care continues. Addendum: 03/02/17 at 1943 by ELMA BOTELLO RN
[2017-03-02] MEDS: MeTOProlol 1 mg/mL 5 mL Inj IVPUSH SCH (05:10)
[2017-03-02 05:30] LABS: BASOPHILS % (AUTO) 0.2 % (0-3); EOSINOPHILS % (AUTO) 1.3 % (0-5); MONOCYTES % (AUTO) 9.6 % (4-12); Mean Corpuscular Hemoglobin 30.3 pg (27.0-35.0); Mean Corpuscular Volume 93.6 fL (81-100); NEUTROPHILS % (AUTO) 76.6 % (40-74); Platelet Count 451 bil/L (150-400)
--- NOTE | 2017-03-02 06:14 | NUR ---
Buttocks Patient has 1-1 1/2 inch skin tear in the gluteal cleft. Barrier wipes and calmoseptine used.
[2017-03-02] MEDS: cefTRIAXone Inj 1,000 MG in Dextrose 5% Minibag Plus 50 ML IV SCH (09:20)
--- NOTE | 2017-03-02 09:21 | PCM.PNMED ---
Subjective Date of Service Mar 01, 2017 Subjective Pt to receive 1 unit pRBC today on 03/01/17 Exam Vital Signs Vital Sign - Last Date Time Temp Pulse Resp B/P Pulse Ox O2 Delivery O2 Flow Rate FiO2 03/02/17 05:55 131/55 03/02/17 05:10 86 03/02/17 03:35 36.7 18 03/01/17 20:10 95 Room Air 02/28/17 18:55 2 Intake and Output 03/01/17 03/01/17 03/02/17 Cumulative From/Thru 15:00 23:00 07:00 02/28/17 10:13 - 03/02/17 05:58 Intake Total 637 ml 1216 ml 2303 ml Output Total 300 ml 0 ml 1350 ml Balance 337 ml 1216 ml 953 ml Intake Oral 537 ml 150 ml 887 ml IV Total 100 ml 1066 ml 1416 ml Output Urine Total 300 ml 0 ml 1350 ml # Bowel Movements 1 2 4 Exam Gen: NAD, AOx3 HEENT: NCAT, PERRLA, EOMI, MMM, sclera anicteric. Neck: Soft, supple, no thyromegaly/JVD/LAD. Resp: CTAB, no R/R/W. CV: S1 S2, Tachycardic, No M/R/G Abd: Soft, (+) BS, ND, Mild Epigatric pain on palpation. Ext: +PP, Trace edema bilaterally. Skin: Stage 2 pressure ulcer at the apex of the sacral cleft. left hip surgical site- [place] intact. c/d/i. Neuro/Psych: Cooperative, appr mood/affect. CN II-XII grossly intact. No focal deficits. IVs and Medications Medications Reviewed: Medications were reviewed in detail Lab and Diagnostics Result Diagram: 03/02/1744403/02/17444 12-lead ECG Sinus tachycardia. Rate 99. Atrial premature complex. Old anteroseptal infarct. Assessment & Plan Ms. Jodi Fierro is an 89 year old lady with a history of dementia, HTN and a recent left hip surgery (~ 11 days ago), Acute Anemia s/p recent 2 units of packed RBCs 02/27/17 who presents to the ED via EMS from [facility] complaining of a severe episode of hematemesis and epistaxis. #Epistaxis- poa, active- Doesn't appear to be significant bleeding. -ENT- Dr. Chiang consulted. 02/28- nasal endoscopy- Clot w/ mild bleeding from caudal right nasal septum. Treated w/ silver nitrate cauterization. - ENT Recs below- 1. Saline nasal spray every two hours while awake. 2. Vaseline ointment just barely within the inside of the nares bilaterally before bedtime on a nightly basis for the next two weeks. 3. Follow up at [facility] in 2-3 weeks for repeat evaluation or earlier if there are problems. #Acute blood loss Anemia of unclear etiology, POA, active. While pt is having epistaxis would not expect associated drop in Hb. Pt is HD stable, although tachycardic on admit. Hb on admit was 8.9 (Although this is after 2u pRBC day prior to admit). As per [facility] lab report 2 days ago, her Hct was 18.9 and her hgb was 6.40. -GI, Dr. Leal consulted. EGD on 02/28/17- no obvious sourceof bleeding, but which did demonstrate blood collected in the hypopharynx - Started Protonix infusion, has been stopped. - ENT consulted, see above. - Has had Melenic stools since EGD. Expected given upper GIB. - If Hb drops again consider another source of GIB. # Hypertension- held hm meds given active bleed. Resume Metoprolol . # Recent left hip hemiarthroplasty- active. Pt to return to [facility] to continue PT. Keep planned follow up with Ortho. Pain- c/w [place] prn. Will need to decide when safe to resume dvt ppx. Lovenox held for now. # Dementia- chronic, stable. at baseline per daughter. Acetaminophen for mild pain when necessary. Bowel regimen Senna and MiraLAX scheduled and PRN. Zofran when necessary for nausea and vomiting. Status- Patient is admitted under inpatient status expected length of stay greater than 2 midnights due to severity of presenting symptoms, risk of adverse events, and complexity of treatment plan. GI Prophylaxis: Proton Pump Inhibitor VTE Mechanical Devices: Intermittant Pneumatic CD Resuscitation Status: CPR: Attempt Resuscitation Chase Quiles MD Mar 02, 2017 09:20
--- NOTE | 2017-03-02 09:23 | PCM.PNMED ---
Subjective Date of Service Mar 02, 2017 Subjective Epistaxis restarted overnight. Exam Vital Signs Vital Sign - Last Date Time Temp Pulse Resp B/P Pulse Ox O2 Delivery O2 Flow Rate FiO2 03/02/17 09:19 36.6 97 16 148/70 96 Room Air 02/28/17 18:55 2 Intake and Output 03/01/17 03/01/17 03/02/17 Cumulative From/Thru 15:00 23:00 07:00 02/28/17 10:13 - 03/02/17 05:58 Intake Total 637 ml 1216 ml 2303 ml Output Total 300 ml 0 ml 1350 ml Balance 337 ml 1216 ml 953 ml Intake Oral 537 ml 150 ml 887 ml IV Total 100 ml 1066 ml 1416 ml Output Urine Total 300 ml 0 ml 1350 ml # Bowel Movements 1 2 4 Exam Gen: NAD, AOx3 HEENT: NCAT, PERRLA, EOMI, MMM, sclera anicteric. Neck: Soft, supple, no thyromegaly/JVD/LAD. Resp: CTAB, no R/R/W. CV: S1 S2, Tachycardic, No M/R/G Abd: Soft, (+) BS, ND, Mild Epigatric pain on palpation. Ext: +PP, Trace edema bilaterally. Skin: Stage 2 pressure ulcer at the apex of the sacral cleft. left hip surgical site- [place] intact. c/d/i. Neuro/Psych: Cooperative, appr mood/affect. CN II-XII grossly intact. No focal deficits. IVs and Medications Medications Reviewed: Medications were reviewed in detail Lab and Diagnostics Result Diagram: 03/02/1744403/02/17444 12-lead ECG Sinus tachycardia. Rate 99. Atrial premature complex. Old anteroseptal infarct. Assessment & Plan Ms. Jodi Fierro is an 89 year old lady with a history of dementia, HTN and a recent left hip surgery (~ 11 days ago), Acute Anemia s/p recent 2 units of packed RBCs 02/27/17 who presents to the ED via EMS from [facility] complaining of a severe episode of hematemesis and epistaxis. #Epistaxis- poa, active- Doesn't appear to be significant bleeding. -ENT- Dr. Chiang consulted. 02/28- nasal endoscopy- Clot w/ mild bleeding from caudal right nasal septum. Treated w/ silver nitrate cauterization. - ENT Recs below- 1. Saline nasal spray every two hours while awake. 2. Vaseline ointment just barely within the inside of the nares bilaterally before bedtime on a nightly basis for the next two weeks. 3. Follow up at [facility] in 2-3 weeks for repeat evaluation or earlier if there are problems. #Acute blood loss Anemia of unclear etiology, POA, active. While pt is having epistaxis would not expect associated drop in Hb. Pt is HD stable, although tachycardic on admit. Hb on admit was 8.9 (Although this is after 2u pRBC day prior to admit). As per [facility] lab report 2 days ago, her Hct was 18.9 and her hgb was 6.40. -GI, Dr. Leal consulted. EGD on 02/28/17- no obvious sourceof bleeding, but which did demonstrate blood collected in the hypopharynx - Started Protonix infusion, has been stopped. - ENT consulted, see above. - Has had Melenic stools since EGD. Expected given upper GIB. - If Hb drops again consider another source of GIB. # Hypertension- held hm meds given active bleed. Resume Metoprolol at 1/2 dose of 25mg BID, titrate up as tolerated. # Recent left hip hemiarthroplasty- active. Pt to return to [facility] to continue PT. Keep planned follow up with Ortho. Pain- c/w [place] prn. Will need to decide when safe to resume dvt ppx. Lovenox held for now. # Dementia- chronic, stable. at baseline per daughter. Acetaminophen for mild pain when necessary. Bowel regimen Senna and MiraLAX scheduled and PRN. Zofran when necessary for nausea and vomiting. Status- Patient is admitted under inpatient status expected length of stay greater than 2 midnights due to severity of presenting symptoms, risk of adverse events, and complexity of treatment plan. GI Prophylaxis: Proton Pump Inhibitor VTE Mechanical Devices: Intermittant Pneumatic CD Resuscitation Status: CPR: Attempt Resuscitation Chase Quiles MD Mar 02, 2017 09:23
--- NOTE | 2017-03-02 09:24 | NUR ---
NUTRITION ASSESSMENT: ASSESS: 89YO F admit with severe anemia receiving pRBC, s/p EGD showing no source of bleeds. MD continue to monitor for source of bleed, nose bleeds/hematemesis & epistaxis. RN notes c/o abdominal pain and decreased po intake. PMHX: HTN,Dementia DIET: Heart Healthy. PO 0-50% LABS: Alb 2.7, Glu 110 MEDS: Reviewed GI: 2 BM 03/02 WEIGHT:69.0kg BMI: 26.1 EST.NEEDS: 4891-0416 kcal, 70-80g pro (25-30kcal/kg;1.0-1.2g/kg pro) NUTRITION DIAGNOSIS: (1) Inadequate oral intake related to c/o abdominal pain/GI status as evidenced by po intake 0-50% x 2 days. INTERVENTION: (1) Add supplements BID to promote adequate kcal/protein intake (Ensure). MONITOR/EVALUATE: PO intake/tolerance, lab values, GI status. F/U per moderate risk.
--- NOTE | 2017-03-02 10:45 | NUR ---
Social Work: Readiness for Discharge/Multidisciplinary Rounds D: EMR reviewed. Pt is on day 2 of hospitalization. Pt discussed in multidisciplinary rounds and is not medically stable for discharge at this time, anticipate 1 more day pending ENT, and improved WBC. MD acknowledged that he will place a return to [facility] order for pt during multidisciplinary rounds. Pt resides from [facility] for rehab and SW confirmed with Nehal from [facility] that pt can return to [facility] pending insurance authorization. SW to notify [facility]ist of possible discharge tomorrow. A: Pt for who reside at [facility] rehab and who will will return per MD order. P: Pt anticipated to return to [facility] tomorrow. MICHELLE confirmed MD will place return order. SW to notify SW to notify [facility]ist of possible discharge tomorrow. SW to work with [facility] to coordinate transportation. SW will continue to follow. ZEESHAN Abbott
[2017-03-02] MEDS ORDERED: Benzocaine-Menthol Lozenge 2/Pkg PO PRN (11:40)
[2017-03-02] MEDS ORDERED: Alum-Mag Hydrox-Simeth 30 mL Suspension PO PRN (16:40)
[2017-03-02 17:05] LABS: BASOPHILS % (AUTO) 0.1 % (0-3); EOSINOPHILS % (AUTO) 0.9 % (0-5); MONOCYTES % (AUTO) 10.7 % (4-12); Mean Corpuscular Volume 94.3 fL (81-100); Platelet Count 486 bil/L (150-400)
[2017-03-02] MEDS: 0.9% Sodium Chloride 250 ML IV SCH (18:10)
--- NOTE | 2017-03-02 19:24 | NUR ---
GI for most of day shift pt was having abd cramping/heartburn, had 2-3 blackish stools appeared to be old blood. Last stool looked more normal colored and she actually felt better afterwards and was able to eat some soup and protein drink
[2017-03-02] MEDS ORDERED: PETROLATUM TOPICAL SCH (21:00)
[2017-03-03] VITALS: BP 131/74; PULSE 78; RESP 18; O2SAT 97
[2017-03-03] MEDS: Sodium Chloride NAS 45 mL Spray NASAL SCH ×14 (00:30→14:30)
[2017-03-03 04:05] VITALS: PULSE 92
[2017-03-03 04:40] VITALS: BP 166/70; PULSE 80; RESP 18; O2SAT 97
[2017-03-03 05:10] LABS: BASOPHILS % (AUTO) 0.2 % (0-3); EOSINOPHILS % (AUTO) 0.9 % (0-5); MONOCYTES % (AUTO) 10.1 % (4-12); Mean Corpuscular Hemoglobin 30.5 pg (27.0-35.0); Mean Corpuscular Volume 95.7 fL (81-100); NEUTROPHILS % (AUTO) 76.8 % (40-74); Platelet Count 528 bil/L (150-400)
[2017-03-03 05:44] VITALS: PULSE 97
--- NOTE | 2017-03-03 06:00 | NUR ---
Bloody nose again last night Rt nare / mild to moderate bleeding. Treated with nasal sprays and vasaline, then applied mustache dressing under nose. Bleeding resolved then restarted again at 0500. MD informed on morning rounds.
--- NOTE | 2017-03-03 06:00 | NUR ---
urinary retention / increased confusion overnight Occasional urinary incontinence with BM X2 this shift. Increased restlessness and wanting to "go home". Bladder scan 796ml at 0200. Hospitalist notified and I/O cath done with 1200ml out.
[2017-03-03] MEDS ORDERED: Pantoprazole 40 mg ER24 Tablet PO SCH (07:30)
--- NOTE | 2017-03-03 07:52 | PCM.DC.MED ---
Discharge Summary Date of Service Mar 03, 2017 Dates of Hospitalization Date of Hospital Admission Feb 28, 2017 at 13:12 Date of Discharge: Mar 03, 2017 Providers: Admitting Physician: Chase Quiles MD Primary Care Physician: Saad Alonso MD Attending Physician: Chase Quiles MD Diagnosis at Time of Discharge Diagnosis at Time of Discharge #Epistaxis- poa, active- #Acute blood loss Anemia of unclear etiology, POA, stable. # Recent left hip hemiarthroplasty- active. # Hypertension- # Dementia- chronic, stable Consultations ENT- Dr. Chiang. GI- Dr. Leal. Procedures ECG 12 Lead Sinus tachycardia. Rate 99. Atrial premature complex. Old anteroseptal infarct. Brief History Per HPI by Dr. Ng on 02/28/17 Ms. Jodi Fierro is an 89 year old lady with a history of dementia, HTN and a recent left hip surgery (~ 11 days ago), Acute Anemia s/p recent 2 units of packed RBCs 02/27/17 who presents to the ED via EMS from [facility] complaining of a severe episode of hematemesis and epistaxis. History is obtained from daughter and patient. Patient is poor historian. Patient says that she does not recall having episodes of hematemesis and thinks it was probably less than the third of a cup. She does have epigastric pain. Denied any history of ulcers. Patient was sent to [facility] yesterday , 02/27, received 2 units of PRBC. No documentation of GI bleed during that visit. Patient does not have a history of known GI bleeds per daughter however has had episodes of epistaxis over the last week. Per family patient had a colonoscopy earlier this year, unclear results. 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 Hospital Course Ms. Jodi Fierro is an 89 year old lady with a history of dementia, HTN and a recent left hip surgery (~ 11 days ago), Acute Anemia s/p recent 2 units of packed RBCs 02/27/17 who presents to the ED via EMS from [facility] complaining of a severe episode of hematemesis and epistaxis. #Epistaxis- poa, active- Doesn't appear to be significant bleeding. Does still have some oozing. -ENT- Dr. Chiang consulted. 02/28- nasal endoscopy- Clot w/ mild bleeding from caudal right nasal septum. Treated w/ silver nitrate cauterization. - ENT Recs below- 1. Saline nasal spray every two hours while awake. 2. Vaseline ointment just barely within the inside of the nares bilaterally before bedtime on a nightly basis for the next two weeks. 3. Follow up at [facility] in 2-3 weeks for repeat evaluation or earlier if there are problems. #Acute blood loss Anemia of unclear etiology, POA, stable. While pt is having epistaxis would not expect associated drop in Hb. Pt is HD stable, although tachycardic on admit. Hb on admit was 8.9 (Although this is after 2u pRBC day prior to admit). As per [facility] lab report 2 days ago, her Hct was 18.9 and her hgb was 6.40. -GI, Dr. Leal consulted. EGD on 02/28/17- no obvious sourceof bleeding, but which did demonstrate blood collected in the hypopharynx - Started Protonix infusion, has been stopped. Now just Protonix daily. - ENT consulted, see above. - Has had Melenic stools since EGD. Expected given upper GIB. - Pt's hb has been stable over last 24-48 hrs. # Hypertension- held hm meds given active bleed. Resume Metoprolol at 1/2 dose of 25mg BID, increase to home dose on discharge. # Recent left hip hemiarthroplasty- active. Pt to return to [facility] to continue PT. Keep planned follow up with Ortho. Pain- c/w [facility] prn. Will need to decide when safe to resume dvt ppx. Lovenox held for now. #UTI- poa, active. Urine cx- Ecoli, Ceftriaxone started 03/02. Take oral Cefuroxime for another 5 days starting Mar 04 for total 7 days treatment. # Dementia- chronic, stable. at baseline per daughter. Acetaminophen for mild pain when necessary. Bowel regimen Senna and MiraLAX scheduled and PRN. Zofran when necessary for nausea and vomiting. Dispo- back to , [facility] to resume Physical therapy and OT for transfers, progressive ambulation, therapeutic exercise, ADL's. Weightbearing: Weightbearing as tolerated with walker Take oral Cefuroxime for another 5 days starting Mar 04 for total 7 days treatment. Protonix daily. Hold Lovenox for another 3-5 days until feel hemoglobin is stable. If orthopedic Surgery decides to resume, please stop if epistaxis worsens.. Instructions to control Epistaxis . 1. Saline nasal spray every two hours while awake. 2. Vaseline ointment just barely within the inside of the nares bilaterally before bedtime on a nightly basis for the next two weeks. 3. Afran spray as needed to control bleeding. Please recheck her hemoglobin daily for next 2 days to ensure that it is stable. Follow up with at [facility] with PA for wound check in 1 week and at [address] Frank with x-rays Can decide on safe DVT Prophylaxis then. Follow up at [facility] with Dr. Chiang in 2 weeks for repeat evaluation of epistaxis. Can call for sooner follow up if concerns or problems Exam Vital Signs (Last) Date Time Temp Pulse Resp B/P Pulse Ox O2 Delivery O2 Flow Rate FiO2 03/03/17 05:44 97 03/03/17 04:40 36.3 18 166/70 97 Room Air 02/28/17 18:55 2 Test 02/28/17 10:34 02/28/17 10:46 03/02/17 04:45 03/03/17 04:05 Prothrombin Time 11.3sec (8.1-12.5) Prothromb Time International Ratio 1.05ratio Urine Color Straw (YELLOW) Urine Appearance Cloudy (CLEAR,HAZY) Urine pH 7.0 (5.0-8.0) Urine Specific [place] 1.010 (1.003-1.035) Urine Protein Tracemg/dL (NEG,TRACE) Urine Glucose (UA) Negativemg/dL (NEGATIVE) Urine Ketones Negativemg/dL (NEGATIVE) Urine Occult Blood Large (NEGATIVE) Urine Nitrite Positive (NEGATIVE) Urine Bilirubin Negative (NEGATIVE) Urine Urobilinogen 1.0mg/dL (NORMAL) Urine Leukocyte Esterase Moderate (NEGATIVE) Urine RBC 11-50/hpf (0-2) Urine WBC 11-50/hpf (0-5) Urine Epithelial Cells None/hpf (NONE-MOD) Urine Crystals None seen (NONE SEEN) Urine Bacteria Many/hpf (NONE-FEW) Urine Hyaline Casts None/lpf (NONE) Urine Granular Casts None seen (NONE SEEN) Urine Waxy Casts None seen (NONE SEEN) Urine Red Blood Cell Casts None seen (NONE SEEN) Urine White Blood Cell Casts None seen (NONE SEEN) Urine Mucus None seen (None Seen) Urine Trichomonas None seen (NONE SEEN) Urine Yeast None (NONE SEEN) Urinalysis Comment None Urine Culture Reflexed Indicated Sodium Level 137mEq/L (134-144) Potassium Level 4.1mEq/L (3.5-5.2) Chloride Level 99mEq/L (97-108) Carbon Dioxide Level 27mmol/L (18-29) Blood Urea Nitrogen 27mg/dL (8-27) Creatinine 0.82mg/dL (0.57-1.00) Estimat Glomerular Filtration Rate 94mL/min (>59) Glucose Level 110mg/dL (60-99) Calcium Level 7.7mg/dL (8.5-10.1) Total Bilirubin 1.4mg/dL (0.0-1.2) Aspartate Amino Transf (AST/SGOT) 24U/L (0-50) Alanine Aminotransferase (ALT/SGPT) 13U/L (0-32) Alkaline Phosphatase 54U/L (25-165) Total Protein 4.2g/dL (6.4-8.4) Albumin 2.7g/dL (3.4-5.0) White Blood Count 10.6th/mm3 (3.8-10.1) Red Blood Count 2.82mil/mm3 (3.90-5.20) Hemoglobin 8.6g/dL (12.0-15.6) Hematocrit 27.0% (35.0-46.0) Mean Corpuscular Volume 95.7fL (81-100) Mean Corpuscular Hemoglobin 30.5pg (27.0-35.0) Mean Corpuscular Hemoglobin Concent 31.9% (32.0-37.0) Red Cell Distribution Width 17.7% (12.3-15.4) Platelet Count 528bil/L (150-400) Neutrophils (%) (Auto) 76.8% (40-74) Lymphocytes (%) (Auto) 10.9% (14-46) Monocytes (%) (Auto) 10.1% (4-12) Eosinophils (%) (Auto) 0.9% (0-5) Basophils (%) (Auto) 0.2% (0-3) Microbiology Results Laboratory Tests Test 03/02/17 16:57 03/03/17 04:05 White Blood Count 11.0th/mm3 (3.8-10.1) 10.6th/mm3 (3.8-10.1) Red Blood Count 2.81mil/mm3 (3.90-5.20) 2.82mil/mm3 (3.90-5.20) Hemoglobin 8.7g/dL (12.0-15.6) 8.6g/dL (12.0-15.6) Hematocrit 26.5% (35.0-46.0) 27.0% (35.0-46.0) Mean Corpuscular Volume 94.3fL (81-100) 95.7fL (81-100) Mean Corpuscular Hemoglobin 31.0pg (27.0-35.0) 30.5pg (27.0-35.0) Mean Corpuscular Hemoglobin Concent 32.8% (32.0-37.0) 31.9% (32.0-37.0) Red Cell Distribution Width 17.8% (12.3-15.4) 17.7% (12.3-15.4) Platelet Count 486bil/L (150-400) 528bil/L (150-400) Neutrophils (%) (Auto) 75.0% (40-74) 76.8% (40-74) Lymphocytes (%) (Auto) 12.1% (14-46) 10.9% (14-46) Monocytes (%) (Auto) 10.7% (4-12) 10.1% (4-12) Eosinophils (%) (Auto) 0.9% (0-5) 0.9% (0-5) Basophils (%) (Auto) 0.1% (0-3) 0.2% (0-3) Microbiology 03/01/17 Stool Occult Blood (GHAZAL) - Final, Complete 02/28/17 Urine Culture - Final, Complete Escherichia Coli Discharge Medications Discharge Medications Ferrous Sulfate (Ferrous Sulfate) 325 Mg Tablet 325 MG PO DAILY (Reported) Metoprolol Tartrate (Metoprolol Tartrate) 50 Mg Tablet 50 MG PO BID (Reported) Polyethylene Glycol 3350 (Miralax) 17 Gm Powd.pack 17 GM PO DAILY (Reported) As needed Acetaminophen (Acetaminophen) 325 Mg Tablet 650 MG PO Q4H PRN PRN For Pain ( Reported) Hydrocodone-Acetaminophen 5-325 mg (Hydrocodone-Acetaminophen 5-325 mg) 1 Each Tablet 1-2 TABLET PO Q4H PRN PRN For Moderate Pain Prescribed by: FABRIZIO TREVIZO MD Sennosides (Senna) 8.6 Mg Tablet 8.6-17.2 MG PO BID PRN PRN For Constipation ( Reported) Additional med instructions Take oral Cefuroxime for another 5 days starting Mar 04 for total 7 days treatment. Protonix daily. Hold Lovenox for another 3-5 days until feel hemoglobin is stable. If orthopedic Surgery decides to resume, please stop if epistaxis worsens.. Instructions to control Epistaxis . 1. Saline nasal spray every two hours while awake. 2. Vaseline ointment just barely within the inside of the nares bilaterally before bedtime on a nightly basis for the next two weeks. 3. Afran spray as needed to control bleeding. Followup Plan Disposition: back to , [facility] to resume Physical therapy and OT for transfers, progressive ambulation, therapeutic exercise, ADL's. Weightbearing: Weightbearing as tolerated with walker Follow-up plan Follow up with at [facility] with PA for wound check in 1 week and at [address] Frank with x-rays Can decide on safe DVT Prophylaxis then. Follow up at [facility] with Dr. Chiang in 2 weeks for repeat evaluation of epistaxis. Can call for sooner follow up if concerns or problems Discharge Diet: No restrictions Discharge Activity: Other (Daily PT ) Patient Instructions Please recheck her hemoglobin daily for next 2 days to ensure that it is stable. For urinary retention please perform bladder scan twice daily if not voiding. Pt will need regular bowel regimen with goal of daily bowel movement to avoid constipation and resulting urinary retention. Follow-up Provider: Saad Alonso MD Follow-up with PCP in: 2 weeks Provider: Franklin Chiang MD Follow-up in: 1 week Mid-level Provider: [place], Haily M PA-C Follow-up with Mid-level in: 1 week Time spent Greater than 30 minutes was spent in preparation of discharge with greater than 50% of that time dedicated to patient counseling and coordination of care. Chase Quiles MD Mar 03, 2017 07:52
[2017-03-03] MEDS ORDERED: Benzocaine/Menthol PO (08:04)
[2017-03-03] MEDS ORDERED: CEFU250T82 PO (08:04)
[2017-03-03] MEDS ORDERED: PETROLATUM TOPICAL (08:04)
[2017-03-03] MEDS ORDERED: Al Hydrox/Mg Hydrox/Simeth PO (08:04)
[2017-03-03] MEDS ORDERED: HYDR-4003 PO (08:04)
[2017-03-03] MEDS ORDERED: OXYMETAZOLINE HCL NASAL (08:04)
[2017-03-03] MEDS ORDERED: PANT40TA3 PO (08:04)
[2017-03-03] MEDS ORDERED: Saline NASAL (08:04)
--- NOTE | 2017-03-03 08:04 | PCM.DIMED ---
Discharge Instructions Date of Service Mar 03, 2017 Dates of Hospitalization Feb 28, 2017 at 13:12 Discharge Diagnosis Discharge Diagnosis #Epistaxis- poa, active- #Acute blood loss Anemia of unclear etiology, POA, stable. # Recent left hip hemiarthroplasty- active. # Hypertension- # Dementia- chronic, stable Medication Instructions Additional med instructions Take oral Cefuroxime for another 5 days starting Mar 04 for total 7 days treatment. Protonix daily. Hold Lovenox for another 3-5 days until feel hemoglobin is stable. If orthopedic Surgery decides to resume, please stop if epistaxis worsens.. Instructions to control Epistaxis . 1. Saline nasal spray every two hours while awake. 2. Vaseline ointment just barely within the inside of the nares bilaterally before bedtime on a nightly basis for the next two weeks. 3. Afran spray as needed to control bleeding. Test Results Test Results G[facility]ZAL CULT URINE Final 03/02/17-625 Organism 1 ESCHERICHIA COLI U COLONY COUNT/QUANTITY >100,000 CFU/ml Cefazolin-predicts results for the oral agents, cefaclor,cefdinir, cefpodoximen, cefprozil, cefuroximne axetil, cephalexin and loracarbed when used for therapy of uncomplicated UTI's due to E. coli, K. pneumoniae, and Proteus mirabilis. Cefpodoxime, cefdinir and cefuroxime axetil may be tested individually because some isolates may be susceptible to these agents while testing resistant to cefazolin. (CLSI H562-S50 pg 53) 1. ESCHERICHIA COLI M.I.C Interp --------- ------ * AMOXICILLIN/CLAVULATE <=2 S * AMPICILLIN <=2 S * CEFAZOLIN (CEPHALOSPORIN) UTI 4 S * CEFEPIME <=1 S * CEFTRIAXONE <=1 S * CEFUROXIME SODIUM 4 S * CIPROFLOXACIN >=4 R * ERTAPENEM <=0.5 S * GENTAMICIN <=1 S * IMIPENEM <=1 S * LEVOFLOXACIN >=8 R * NITROFURANTOIN <=16 S * TETRACYCLINE <=1 S * TOBRAMYCIN <=1 S * TRIMETHOPRIM/SULFAMETHOXAZOLE <=20 S Diet Discharge Diet: No restrictions Activity Discharge Activity: Other (Daily PT ) Patient Instructions Patient Instructions Please recheck her hemoglobin daily for next 2 days to ensure that it is stable. For urinary retention please perform bladder scan twice daily if not voiding. Pt will need regular bowel regimen with goal of daily bowel movement to avoid constipation and resulting urinary retention. Follow-up plan Follow up with at [facility] with PA for wound check in 1 week and at [address] Frank with x-rays Can decide on safe DVT Prophylaxis then. Follow up at [facility] with Dr. Chiang in 2 weeks for repeat evaluation of epistaxis. Can call for sooner follow up if concerns or problems Follow-up Provider: Saad Alonso MD Follow-up with PCP in: 2 weeks Provider: Franklin Chiang MD Follow-up in: 1 week Mid-level Provider (F9): Hialy Dominguez PA-C Follow-up with Mid-level in: 1 week Chase Quiles MD Mar 03, 2017 08:04
[2017-03-03 09:55] VITALS: PULSE 78
--- NOTE | 2017-03-03 10:30 | NUR ---
Evaluation completed. Please go to "Notes" then click on "Assessments and Notes" (bottom left corner of screen). Then select appropriate discipline tab on top of screen.
[2017-03-03] MEDS: 0.9% Sodium Chloride 250 ML IV SCH (11:40)
--- NOTE | 2017-03-03 15:29 | NUR ---
Social Work: Discharge/Multidisciplinary Rounds D: EMR reviewed. Pt is on day 3 of hospitalization. Pt discussed in multidisciplinary rounds and is medically stable for discharge [facility] today via wheelchair van. MICHELLE received T/C from UR RN confirming [place] authorized pt's stay at [facility]. MICHELLE placed T/C to Alfonso at [facility] confirming pt's readiness for discharge. Alfonso confirmed [facility] will transport pt from [facility] to [facility] at 1545 today. MICHELLE updated RN/UA on transfer time. All agreeable to transfer time and discharge plan. MICHELLE faxed discharge ppw, hard rx, and face sheet to [facility] and confirmed receipt. Pt does not need PASRR as she is returning to [facility]. MICHELLE completed transfer packet and left with artist's manager for time of discharge. A: Pt for whom a SNF if medically necessary. P: Pt to discharge to [facility] via [employer] transport at 1545 today. MICHELLE updated RN/UA on transfer time. MICHELLE updated pt on transfer time. All agreeable to transfer time and discharge plan. MICHELLE faxed discharge ppw and confirmed receipt. MICHELLE completed transfer packet, including hard rx, and left with artist's manager for time of discharge. No other SW needs identified, no other MD orders received. ZEESHAN Abbott
--- NOTE | 2017-03-03 15:51 | NUR ---
Discharge Patient had PT eval done today in preparation for discharge back to [facility] to resume physical therapy. Patient was able to stand and take a few steps with walker with 1 person assistance. Bleeding from R nares is minimal. Mustache dressing in place. Continued with saline nasal spray every 2 hrs. Patient is anxious to leave hospital, frequently calling out for assistance. Only alert to self. Report called to Luz Maria @ [facility]. Patient left with all belongings.
[2017-03-03] MEDS ORDERED: LORA-303 PO (18:21)
== END 2017-03-03 15:45 | DRG 982 ==
LOC: EDBD 10:07 → SED 10:07 → OSC 13:12
PROVIDERS: ADMIT Internal Medicine; ATTEND Internal Medicine
PROC: 0W3Q8ZZ Control Bleeding in Respiratory Tract, Via Natural or Artificial Opening Endoscopic (ICD-10-PCS; principal; 2017-02-28 17:15)
PROC: 30233N1 Transfusion of Nonautologous Red Blood Cells into Peripheral Vein, Percutaneous Approach (ICD-10-PCS; 2017-03-02)
DX: R04.0 Epistaxis (principal); D62 Acute posthemorrhagic anemia; I10 Essential (primary) hypertension